=== PATIENT | male | born 1985 | race Hispanic/Latino ===

== ENCOUNTER 2018-03-05 17:49 | Emergency (ER) | payer MEDICAID ==
[2018-03-05] MEDS: KETOROLAC 60 MG/2 ML VIAL (J1885) IM (18:53)
== END 2018-03-05 20:13 | disposition home or self-care (01) ==
LOC: M ED 17:49
DX: M79.651 Pain in right thigh (principal); M79.671 Pain in right foot; M25.531 Pain in right wrist
CPT/HCPCS: J1885

== ENCOUNTER 2018-04-01 19:26 | Emergency (ER) | payer OTHER, MEDICAID ==
[2018-04-01 22:23] LABS: CHLAMYDIA DNA AMPLIFICATION NEGATIVE (NEGATIVE); GC DNA AMPLIFICATION NEGATIVE (NEGATIVE)
[2018-04-01 22:54] LABS: APPEARANCE, URINE CLEAR (CLEAR); BACTERIA, URINE AUTO NEGATIVE (NEGATIVE); BILIRUBIN, URINE AUTO NEGATIVE (NEGATIVE); BLOOD, URINE BLOOD NEGATIVE (NEGATIVE); COLOR, URINE STRAW (YELLOW); GLUCOSE, URINE (UA) AUTO NEGATIVE (NEGATIVE); KETONE, URINE AUTO NEGATIVE (NEGATIVE); LEUKOCYTE ESTERASE, URINE AUTO NEGATIVE (NEGATIVE); MUCUS, URINE SMALL (NEGATIVE); NITRITE, URINE AUTO NEGATIVE (NEGATIVE); PROTEIN, URINE AUTO NEGATIVE (NEGATIVE); RBC, URINE AUTO 1 /HPF (0-3); SPECIFIC GRAVITY URINE AUTO 1.005 (1.002-1.035); SQUAMOUS EPITHELIAL CELL UR AU 0 /HPF (0-6); UROBILINOGEN, URINE AUTO 0.2 mg/dL (0.0-2.0); WBC, URINE AUTO 0 /HPF (0-3)
[2018-04-01] MEDS: LevoFLOXacin 500 MG TABLET PO (23:45)
[2018-04-01] MEDS: OXYCODONE/APAP 5MG/325MG(BULK FOR ED) 1 TABLET PO (23:45)
== END 2018-04-01 23:53 | disposition home or self-care (01) ==
LOC: M ED 19:26
DX: N43.3 Hydrocele, unspecified (principal); N45.1 Epididymitis; M79.641 Pain in right hand
CPT/HCPCS: 76870

== ENCOUNTER 2018-06-09 09:42 | Emergency (ER) | payer OTHER ==
[~2018-06-09] VITALS: Ht 182.9 cm; Wt 90.9 kg
[~2018-06-09 09:42] MED LIST: DOXY100C37 PO; LEVA1TAB2 PO; NAPR-50 PO; PERC5TAB12 PO; ROBA500T PO
[2018-06-09 09:44] VITALS: BP 147/86
[2018-06-09] MEDS ORDERED: NEUR300C PO (10:37)
[2018-06-09] MEDS ORDERED: NAPR-50 PO (10:37)
[2018-06-09] MEDS ORDERED: PERC5TAB12 PO (10:43)
== END 2018-06-09 10:54 | disposition home or self-care (01) ==
LOC: M ED 09:42
DX: K42.9 Umbilical hernia without obstruction or gangrene (principal); M54.10 Radiculopathy, site unspecified; M79.601 Pain in right arm

== ENCOUNTER 2018-08-15 20:36 | Emergency (ER) | payer OTHER ==
[~2018-08-15] VITALS: Ht 185.4 cm; Wt 90.9 kg
[~2018-08-15 20:36] MED LIST changes: +NEUR300C PO
[2018-08-15] MEDS ORDERED: DOCU100C16 (20:48)
[2018-08-15] MEDS ORDERED: IBUP80TA (20:48)
[2018-08-15] MEDS ORDERED: HYDR-3713 (20:48)
[2018-08-15] MEDS ORDERED: METH1TAB40 (20:48)
[2018-08-15] MEDS ORDERED: MEDR4PAK PO (22:06)
[2018-08-15] MEDS ORDERED: ACETAMINOPHEN 325 MG TAB PO ONE (22:30)
[2018-08-15] MEDS ORDERED: KETOROLAC 60 MG/2 ML VIAL (J1885) IM ONE (22:30)
[2018-08-15 22:48] VITALS: BP 160/80
--- NOTE | 2018-08-16 03:55 | REP ---
Clinical: Lower back pain and sciatica the . Technique: AP, lateral, bilateral oblique, and coned-down views. Findings: Alignment and lordosis is maintained. The vertebral bodies including transverse process and spinous processes are intact and normal. There is no evidence for acute fracture / compression injury or subluxation. No evidence for spondylolysis or spondylolisthesis. No significant degenerative change is noted. Impression: Normal lumbosacral spine radiograph series. Electronically Signed by Zack Edwards MD 08/16/2018 03:46 A
== END 2018-08-15 22:52 | disposition home or self-care (01) ==
LOC: M ED 20:36
DX: M54.41 Lumbago with sciatica, right side (principal); K42.9 Umbilical hernia without obstruction or gangrene
CPT/HCPCS: 72110; 96372; 99283; J1885

== ENCOUNTER → 2018-09-03 | Outpatient (REF) | payer OTHER ==
[~2018-09-03] MED LIST changes: +DOCU100C16; +HYDR-3713; +IBUP80TA; +MEDR4PAK PO; +METH1TAB40; -NAPR-50 PO; +NAPR-837 PO
[2018-09-03 17:59] LABS: AMORPHOUS SEDIMENT LARGE (NEGATIVE); APPEARANCE, URINE TURBID (CLEAR); BACTERIA, URINE AUTO NEGATIVE (NEGATIVE); BILIRUBIN, URINE AUTO NEGATIVE (NEGATIVE); BLOOD, URINE BLOOD NEGATIVE (NEGATIVE); COLOR, URINE AMBER (YELLOW); GLUCOSE, URINE (UA) AUTO NEGATIVE (NEGATIVE); KETONE, URINE AUTO NEGATIVE (NEGATIVE); LEUKOCYTE ESTERASE, URINE AUTO NEGATIVE (NEGATIVE); MUCUS, URINE SMALL (NEGATIVE); NITRITE, URINE AUTO NEGATIVE (NEGATIVE); PROTEIN, URINE AUTO NEGATIVE (NEGATIVE); RBC, URINE AUTO 0 /HPF (0-3); SPECIFIC GRAVITY URINE AUTO 1.021 (1.002-1.035); SQUAMOUS EPITHELIAL CELL UR AU 0 /HPF (0-6); UROBILINOGEN, URINE AUTO 0.2 mg/dL (0.0-2.0); WBC, URINE AUTO 0 /HPF (0-3)
[2018-09-03 19:01] LABS: BASO # 0.1 10^3/uL (0.0-0.2); EOS # 0.2 10^3/uL (0.0-0.50); EOS % 2.7 % (0.0-3.0); HEMATOCRIT 52.3 % (42.0-52.0); HEMOGLOBIN 17.3 g/dl (13.5-17.5); LYMPH # 2.3 10^3/uL (1.5-4.5); LYMPH % 27.3 % (24.0-44.0); MEAN CORPUSCULAR HEMOGLOBIN 31.5 pg (27.0-33.0); MEAN CORPUSCULAR HGB CONC 33.1 g/dl (32.0-36.5); MEAN CORPUSCULAR VOLUME 95.1 fl (80.0-96.0); MONO # 0.7 10^3/uL (0.0-0.8); MONO % 8.4 % (0.0-5.0); NEUTROPHILS # 4.9 10^3/uL (1.8-7.7); NEUTROPHILS % 59.1 % (36.0-66.0); PLATELET COUNT, AUTOMATED 322 10^3/uL (150-450); WHITE BLOOD COUNT 8.3 10^3/uL (4.0-10.0)
[2018-09-03 19:17] LABS: HEMOGLOBIN A1c 5.8 %
[2018-09-03 19:20] LABS: ALBUMIN 4.2 GM/DL (3.2-5.2); ALT/SGPT 40 U/L (12-78); BILIRUBIN,TOTAL 0.4 MG/DL (0.2-1.0); BLOOD UREA NITROGEN 13 MG/DL (7-18); CALCIUM LEVEL 9.3 MG/DL (8.5-10.1); CARBON DIOXIDE LEVEL 28 MEQ/L (21-32); CHLORIDE LEVEL 105 MEQ/L (98-107); CHOLESTEROL LEVEL 231 MG/DL (<200); CHOLESTEROL RISK RATIO 5.923 (<5); FREE T4 0.98 NG/DL (0.76-1.46); GLOMERULAR FILTRATION RATE > 60.0 (>60); GLUCOSE, FASTING 110 MG/DL (70-100); HDL CHOLESTEROL 39 MG/DL (>40); LDL CHOLESTEROL 149 MG/DL (<100); NON-HDL-C 192 MG/DL; POTASSIUM SERUM 4.2 MEQ/L (3.5-5.1); SODIUM LEVEL 139 MEQ/L (136-145); TOTAL PROTEIN 7.8 GM/DL (6.4-8.2); TRIGLYCERIDES LEVEL 217 MG/DL (<150)
[2018-09-03 19:22] LABS: TOTAL 25(OH) VITAMIN D 25.4 NG/ML (30.0-100.0)
[2018-09-07 00:07] LABS: Lyme Disease IgG/IgM Antibodie <0.91 ISR (0.00-0.90); Lyme Disease IgM Ab Quantitati <0.80 index (0.00-0.79)
== END ==
LOC: M LAB REF 17:15
PROVIDERS: ATTEND Family Medicine
DX: Z13.228 Encounter for screening for other metabolic disorders (principal)

== ENCOUNTER → 2018-09-09 | Outpatient (CLI) | payer OTHER ==
--- NOTE | 2018-09-09 17:20 | REP ---
MRI lumbar spine without contrast: History: Low back pain. Comparison radiographs August 15, 2018. Technique: Sagittal and axial T1 and T2-weighted scans are acquired in the usual fashion with and without fat saturation. Sequences include spin echo, turbo spin-echo, and STIR imaging sequences. MRI findings: Lumbar vertebral body heights are preserved. Alignment is normal. Cortical and medullary bone signal intensity is normal. No extravertebral abnormality is observed. Normal caliber aorta. Axial and sagittal images taken at the L5-S1 level demonstrate a right posterolateral focal disc protrusion. This appears to contact the right S1 nerve root and may displace it very slightly dorsally. No neural foraminal narrowing is appreciated. No thecal sac compression is seen. There is mild disc space narrowing at L5-S1. There is no evidence of spondylolysis or spondylolisthesis. At L4-5, there is a left foraminal disc protrusion. This produces left sided neural foraminal narrowing. No thecal sac compression is seen. The right neural foramen is adequate. At L3-4, there is no evidence of disc protrusion, central canal stenosis or neural foraminal narrowing. The L2-3, and the L1-2 disc levels are unremarkable. Impression: A posterolateral focal disc protrusion at L5-S1. Left foraminal focal disc protrusion at L4-5. Otherwise negative. Electronically Signed by Fermín Colon MD 09/09/2018 06:57 P
== END ==
LOC: M RAD 15:58
PROVIDERS: ATTEND Family Medicine
DX: M54.5 Low back pain (principal)

== ENCOUNTER 2018-12-06 08:49 | Emergency (ER) | payer OTHER ==
[~2018-12-06] VITALS: Ht 182.9 cm; Wt 114.3 kg
[2018-12-06] MEDS ORDERED: BACL10TA2 PO (09:52)
[2018-12-06] MEDS ORDERED: KETO10TAB PO (09:52)
[2018-12-06] MEDS ORDERED: KETOROLAC 60 MG/2 ML VIAL (J1885) IM ONE (10:00)
[2018-12-06] MEDS ORDERED: BACLOFEN 10 MG TAB PO ONE (10:00)
[2018-12-06 10:33] VITALS: BP 133/79
== END 2018-12-06 10:34 | disposition home or self-care (01) ==
LOC: M ED 09:55
DX: M54.2 Cervicalgia (principal); M54.41 Lumbago with sciatica, right side; Z72.0 Tobacco use
CPT/HCPCS: 96372; 99283; J1885

== ENCOUNTER 2019-07-05 13:57 | Emergency (ER) | payer OTHER ==
[~2019-07-05] VITALS: Ht 182.9 cm; Wt 112.2 kg
[~2019-07-05 13:57] MED LIST changes: +BACL10TA2 PO; +KETO10TAB PO
[2019-07-05] MEDS ORDERED: KETOROLAC 30 MG/ML VIAL (J1885) IM ONE (17:45)
[2019-07-05 18:35] LABS: BASO # 0.1 10^3/uL (0.0-0.2); BASO % 0.8 % (0.0-1.0); EOS # 0.3 10^3/uL (0.0-0.5); EOS % 3.2 % (0.0-3.0); HEMATOCRIT 52.7 % (42.0-52.0); LYMPH # 3.4 10^3/uL (1.5-5.0); LYMPH % 32.3 % (24.0-44.0); MEAN CORPUSCULAR HEMOGLOBIN 31.3 pg (27.0-33.0); MEAN CORPUSCULAR HGB CONC 32.3 g/dl (32.0-36.5); MEAN CORPUSCULAR VOLUME 96.9 fl (80.0-96.0); MONO # 0.8 10^3/uL (0.0-0.8); MONO % 7.3 % (0.0-5.0); NEUTROPHILS # 5.8 10^3/uL (1.5-8.5); NEUTROPHILS % 55.7 % (36.0-66.0); PLATELET COUNT, AUTOMATED 354 10^3/uL (150-450); RED BLOOD COUNT 5.44 10^6/uL (4.30-6.10); WHITE BLOOD COUNT 10.4 10^3/uL (4.0-10.0)
[2019-07-05 18:53] LABS: CK-MB VALUE MASS 1.2 NG/ML (<3.6); CPK CREATINE PHOSPHOKINASE 234 U/L (39-308); MB/CK RELATIVE INDEX 0.51 (< OR =4); TROPONIN I < 0.02 NG/ML (< 0.10)
--- NOTE | 2019-07-05 19:19 | REP ---
CHEST, TWO VIEWS: There is no evidence of acute infiltrate. No pleural effusion is seen. The heart is normal in size. The mediastinal silhouette is unremarkable. The visualized osseous structures are intact. IMPRESSION: No acute pulmonary disease. Electronically Signed by Jason Rodriguez MD 07/06/2019 05:04 P
[2019-07-05] MEDS ORDERED: IBUP80TA PO (19:35)
[2019-07-05] MEDS ORDERED: PRED20TA PO (19:35)
[2019-07-05] MEDS ORDERED: CYCL5TAB PO (19:35)
[2019-07-05 19:40] VITALS: BP 149/93
--- NOTE | 2019-07-06 14:55 | ECGEPIP ---
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
== END 2019-07-05 19:52 | disposition home or self-care (01) ==
LOC: M ED 13:57
DX: R07.89 Other chest pain (principal); G89.29 Other chronic pain; M54.9 Dorsalgia, unspecified; F17.200 Nicotine dependence, unspecified, uncomplicated
CPT/HCPCS: 36415; 71046; 80047; 82550; 82553; 85025; 93005; 96372; 99284; J1885

== ENCOUNTER → 2019-09-23 | Outpatient (REF) | payer OTHER, MEDICAID ==
[~2019-09-23] MED LIST changes: +CYCL5TAB PO; +IBUP80TA PO; +PRED20TA PO
== END ==
LOC: M LAB REF 16:58
PROVIDERS: ATTEND Physician Assistant
DX: M54.12 Radiculopathy, cervical region (principal); M54.16 Radiculopathy, lumbar region

== ENCOUNTER 2019-10-28 15:22 | Emergency (ER) | payer MEDICAID, OTHER ==
[~2019-10-28] VITALS: Ht 185.4 cm; Wt 118.4 kg
[2019-10-28] MEDS ORDERED: BENZOCAINE 20% GEL 9GM TUBE (ANBESOL MAX STRENGTH) TOP ONE (16:30)
[2019-10-28] MEDS ORDERED: KETOROLAC 30 MG/ML 1ML VIAL IM ONE (16:30)
[2019-10-28] MEDS ORDERED: ACETAMINOPHEN 500 MG TAB PO ONE (16:30)
[2019-10-28 17:34] VITALS: BP 132/82
[2019-10-28] MEDS ORDERED: KETO10TAB PO (17:35)
[2019-10-28] MEDS ORDERED: MAGICMW SSP (17:35)
== END 2019-10-28 17:43 | disposition home or self-care (01) ==
LOC: M ED 15:22
DX: K08.89 Other specified disorders of teeth and supporting structures (principal); S02.5XXA Fracture of tooth (traumatic), initial encounter for closed fracture; X58.XXXA Exposure to other specified factors, initial encounter; Y92.9 Unspecified place or not applicable; M54.9 Dorsalgia, unspecified; G89.29 Other chronic pain; F17.210 Nicotine dependence, cigarettes, uncomplicated
CPT/HCPCS: 99283; J1885

== ENCOUNTER → 2019-11-07 | Outpatient (REF) | payer OTHER, MEDICAID ==
[~2019-11-07] MED LIST changes: +MAGICMW SSP
== END ==
LOC: M LAB REF 16:46
PROVIDERS: ATTEND Physician Assistant
DX: Z79.891 Long term (current) use of opiate analgesic (principal)

== ENCOUNTER → 2019-12-27 | Emergency (ER) | payer OTHER, MEDICAID | END | disposition home or self-care (01) | LOC: M ED 14:35 | DX: M51.24 Other intervertebral disc displacement, thoracic region (principal); M51.26 Other intervertebral disc displacement, lumbar region ==

== ENCOUNTER → 2020-06-07 | Outpatient (CLI) | payer OTHER ==
[~2020-06-07] MED LIST changes: +IBUP200C25 PO
== END ==
LOC: M LABSMTC 10:48
PROVIDERS: ATTEND Anesthesiology
DX: Z01.812 Encounter for preprocedural laboratory examination (principal); Z20.822 Contact with and (suspected) exposure to COVID-19

== ENCOUNTER 2020-06-12 08:11 | Day surgery (SDC) | payer OTHER ==
[~2020-06-12] VITALS: Ht 182.9 cm; Wt 116.0 kg
[~2020-06-12 08:11] MED LIST changes: +LIDOCAINE 1% MDV 20ML VIAL SQ PRN; +LR 1,000 ML IV ONE; +ceFAZolin SOD 2 GM in IV 1 EA IV ONE
--- OUTSIDE RECORDS SUMMARY | 2020-06-12 08:19 | CCD ---
Author Author [facility] Organization [facility] Address Unknown Phone Unavailable Care Team Providers Care Rotor Blade Installer Name Role Phone Russel Estrada Unavailable PROBLEMS Type Condition ICD9-CM Code CIC45-FN Code Onset Dates Condition S tatus SNOMED Code Notes Problem Chronic pain G89.29 Active 28041452 ALLERGIES No Known Allergies ENCOUNTERS from 1985 to 2020-05-14 Encounter Location Date Provider Diagnosis [facility] [address] [place] [phone] May, Russel Estrada Myalgia M79.10 IMMUNIZATIONS No Information SOCIAL HISTORY Tobacco Use: Social History Observation Description Date Details (start date - stop date) Current Smoker Sex Assigned At : Social History Observation Description Sex Assigned At Unknown Language: Question Answer Notes Languages spoken: Both Sammarinese and Scottish Limited Sammarinese Mandaen: Question Answer Notes Mandaen 99 Other No taoism beliefs that would impact health care. Alcohol Screening: Question Answer Notes Did you have a drink containing alcohol in the past year? No Points 0 Interpretation Negative Tobacco Use: Question Answer Notes Are you a: current smoker REASON FOR REFERRAL No Information VITAL SIGNS Weight 259.8 lbs May, Height 70 in May, BMI 37.27 kg/m2 May, Heart Rate 83 /min May, Respiratory Rate 18 /min May, Temperature 98.2 degrees Fahrenheit May, Oximetry 98% May, Blood pressure systolic 153 mm Hg May, Blood pressure diastolic 97 mm Hg May, MEDICATIONS Medication SIG (Take, Route, Frequency, Duration) Notes Start Da te End Date Status Tizanidine HCl 4 MG 1 tablet as needed Orally Three times a day Active Percocet 5-325 MG 1 tablet as needed Orally tw ice daily as needed for pain for 30 days May, Active Ibuprofen 800 MG 1 tablet with food or milk as needed Ora lly Three times a day Active Lyrica 75 MG 1 capsule Orally twice dialy for 30 days 11 D 2019 Active PROCEDURES No Information RESULTS No Results REASON FOR VISIT Back and shoulder pain-Med Management per Dr. Rose MEDICAL (GENERAL) HISTORY Type Description Date Medical History hypertension Medical History back pain, chronic Medical History umbilical hernia Medical History epididymitis Medical History chest wall pain Surgical History hand surgery, right Hospitalization History surgery related Goals Section No Information Health Concerns No Information MEDICAL EQUIPMENT No Information MENTAL STATUS No Information FUNCTIONAL STATUS No Information ASSESSMENTS Encounter Date Diagnosis Assessment Notes Treatment Notes Treatm ent Clinical Notes May, Myalgia (ICD-10 - M79.10) 34-year-old male in for chronic pain follow-up. Given presenting symptoms and consult with Dr. Douglas recommend Percocet 5/325 mg twice a day as needed for pain and Lyrica 75 mg twice a day. With follow-up in 3 weeks. Patient has expressed understanding of and was in agreement with treatment plan. Given time to ask questions and express concerns. , ISTOP registry reviewed and demonstrates complliance. 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 Given presenting symptoms and consult with Dr. Douglas recommend Percocet 5/325 mg twice a day as needed for pain and Lyrica 75 mg twice a day. With follow-up in 3 weeks. Patient has expressed understanding of and was in agreement with treatment plan. Given time to ask questions and express concerns., ISTOP registry reviewed and demonstrates complliance. (Ref # [id number] )urine collected for utox screeningObie Batista Treatment Notes Test Name Order Date Pain Center Urine Tox (send out) 2020-05-14 Next Appt Details 3 Weeks Reason:Myalgia Provider Name:Russel Estrada, 2020-06-04 11:15:00 AM, [address] [place] [address], [phone], Provider Name:Christian Misael, 2020-06-15 01:15:00 PM, [address] [place] [address], [phone], Provider Name:Russel Estrada, 2020-06-27 01:15:00 PM, [address] [place] [address], [phone], Follow Up:3 WeeksMyalgia Insurance Providers Payer Name Payer Address Payer Phone Insured Name Patient Relati onship to Insured Coverage Start Date Coverage End Date [facility] [address] [facility] [phone] BLADIMIR METZ MEDICAID [facility] [address] [facility] [id number] BLADIMIR METZ self
--- OUTSIDE RECORDS SUMMARY | 2020-06-12 08:19 | CCD ---
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 Role Phone Christian Douglas Unavailable PROBLEMS Type Condition ICD9-CM Code EQT02-TQ Code Onset Dates Condition S tatus SNOMED Code Notes Problem Chronic pain G89.29 Active [id number] ALLERGIES No Known Allergies ENCOUNTERS from 1985 to 2020-05-08 Encounter Location Date Provider Diagnosis [facility] [address] [place] [phone] May, Christian Douglas Myalgia M79.10 IMMUNIZATIONS No Information SOCIAL HISTORY Tobacco Use: Social History Observation Description Date Details (start date - stop date) Current Smoker Sex Assigned At : Social History Observation Description Sex Assigned At Unknown Language: Question Answer Notes Languages spoken: Both Ukrainian and Slovak Limited Ukrainian Denominational: Question Answer Notes Denominational 99 Other No buddhism beliefs that would impact health care. Alcohol Screening: Question Answer Notes Did you have a drink containing alcohol in the past year? No Points 0 Interpretation Negative Tobacco Use: Question Answer Notes Are you a: current smoker REASON FOR REFERRAL No Information VITAL SIGNS Weight 266 lbs May, Height 70 in May, BMI 38.16 kg/m2 May, Heart Rate 77 /min May, Respiratory Rate 18 /min May, Temperature 98.0 degrees Fahrenheit May, Oximetry 97% May, Blood pressure systolic 155 mm Hg May, Blood pressure diastolic 86 mm Hg May, MEDICATIONS Medication SIG (Take, Route, Frequency, Duration) Notes Start Da te End Date Status Tizanidine HCl 4 MG 1 tablet as needed Orally Three times a day Active Percocet 5-325 MG 1 tablet as needed Orally every 8 hrs Active Ibuprofen 800 MG 1 tablet with food or milk as needed Ora lly Three times a day Active PROCEDURES from 1985 to 2020-05-08 Procedure Date Ordered Result Body Site Medication: Valium Tab 10mg Orally (Diazepam) 2020-05-01 N/ A Medication: Oxycodone HCL Tab 10mg Orally 2020-05-01 N/A RESULTS No Results REASON FOR VISIT Trigger point injections thoracic bilateral MEDICAL (GENERAL) HISTORY Type Description Date Medical [...] Clinical Notes May, Myalgia (ICD-10 - M79.10) DISCHARGE INSTRUCTIONS REVIEWED WITH PATIENT WHO VERBALIZED UNDERSTANDING OF DISCHARGE INSTRUCTIONS. PLAN OF TREATMENT Treatment Notes Assessment Notes Clinical Notes Myalgia DISCHARGE INSTRUCTIONS REVIE WED WITH PATIENT WHO VERBALIZED UNDERSTANDING OF DISCHARGE INSTRUCTIONS. Next Appt Details Follow up with Dr. Douglas tomorrow Jaylene son:Post trigger point injections thoracic bilateral Provider Name:Russel Estrada, 2020-05-11 10:45:00 AM, [address] [place], [phone], Follow Up:Follow up with Dr. Douglas tomorrowPost trigger point injections thoracic bilateral Insurance Providers Payer Name Payer Address Payer Phone Insured Name Patient Relati onship to Insured Coverage Start Date Coverage End Date [facility] [address] [facility] [phone] BLADIMIR METZ MEDICAID [employer] [address] [facility] [id number] BLADIMIR METZ
--- OUTSIDE RECORDS SUMMARY | 2020-06-12 08:19 | CCD ---
Author Author [facility] Organization [facility] Address Unknown Phone Unavailable Care Team Providers Care Transformer Molder Name Role Phone Christian Love Unavailable PROBLEMS No Information ALLERGIES No Known Allergies ENCOUNTERS from 1985 to 2020-04-17 Encounter Location Date Provider Diagnosis [facility] [address] [place] [phone] Apr, Christian Love Lumbago M54.5 ; Cervicalgia M54.2 ; Righ t shoulder pain M25.511 and Myalgia M79.10 IMMUNIZATIONS No Information SOCIAL HISTORY Tobacco Use: Social History Observation Description Date Details (start date - stop date) Current Smoker Sex Assigned At : Social History Observation Description Sex Assigned At Unknown Language: Question Answer Notes Languages spoken: Both Guatemalan and Greek Limited Guatemalan Religious: Question Answer Notes Religious 99 Other No orthodoxy beliefs that would impact health care. Alcohol Screening: Question Answer Notes Did you have a drink containing alcohol in the past year? No Points 0 Interpretation Negative Tobacco Use: Question Answer Notes Are you a: current smoker REASON FOR REFERRAL No Information VITAL SIGNS Weight 260.8 lbs Apr, Height 70 in Apr, BMI 37.42 kg/m2 Apr, Heart Rate 96 /min Apr, Respiratory Rate 18 /min Apr, Temperature 97.1 degrees Fahrenheit Apr, Oximetry 975 Apr, Blood pressure systolic 155 mm Hg Apr, Blood pressure diastolic 89 mm Hg Apr, MEDICATIONS Medication SIG (Take, Route, Frequency, Duration) Notes Start Da te End Date Status Ibuprofen 800 MG 1 tablet with food or milk as needed Ora lly Three times a day Active Percocet 5-325 MG 1 tablet as needed Orally every 8 hrs Active Tizanidine HCl 4 MG 1 tablet as needed Orally Three times a day Active PROCEDURES No Information RESULTS No Results REASON FOR VISIT NECK/BACK/SHOULDER-PT BOOKED WITH DR LOVE DUE TO PRIMARY LANGUAGE BEING SPAN ARPAN. MEDICAL (GENERAL) HISTORY Type Description Date Medical [...] Notes Treatment Notes Treatm ent Clinical Notes Apr, Lumbago (ICD-10 - M54.5) 04/06/20 1600 patient given pre procedure instructions on trigger point injections, patient verbalizes unerstanding. Reina Woodard RN BSN I discussed alternatives with Mr. Thorpe. The main issue seems to be at the thoracolumbar area. I would like to do trigger points at bilateral thoracic area. I will follow up with the patient after the procedure. For now, the patient will continue with the medication from the primary care. The patient is interested in medical marijuana. I will send a referral to Palliative Care. The patient understands and agrees with the plan. I, Elaine Alexis, documented the above information acting as a scribe for Dr. Love. I have reviewed the above document, written by Elaine Alexis, medical terminologist, and I verify that it is accurate. Dear Dr. Ziegler: Thank you for your kind referral of Bladimir Thorpe. If you want to discuss his case with me please call me at the Pain Center at [phone]. Sincerely, Christian Love MD Pain Medicine Apr, Cervicalgia (ICD-10 - M54.2) Apr, Right shoulder pain (ICD-10 - M25.511) Apr, Myalgia (ICD-10 - M79.10) Apr, Other 04/06/20 1420 Nu rse used hospital translation services "[employer]" for assistance with new zealander translation. Reina Woodard RN BSN iPad available from [employer] [facility] please call NS before prior to obtaining iPad. PLAN OF TREATMENT Treatment Notes Assessment Notes Clinical Notes Lumbago 04/06/20 1600 patient given pre procedure instructions on trigger point injections, patient verbalizes unerstanding. 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 Thorpe. The main issue seems to be at the thoracolumbar area. I would like to do trigger points at bilateral thoracic area. I will follow up with the patient after the procedure. For now, the patient will continue with the medication from the primary care. The patient is interested in medical marijuana. I will send a referral to Palliative Care. The patient unders tands and agrees with the plan. I, Elaine Alexis, documented the above information acting as a scribe for Dr. Love. I have reviewed the above document, written by Elaine Alexis, medical terminologist, and I verify that it is accurate.Dear Dr. Ziegler:Thank you for your kind referral of Bladimir Thorpe. If you want to discuss his case with me please call me at the Pain Center at [phone].Sincerely,Christian Love, [facility] Medicine Next Appt Details Request auth for bilateral thoracic TPI Reason:Request auth for bilateral thoracic TPI Provider Name:Christian Love, 2020-05-01 02:30:00 PM, [address] [place] [address], [phone], Provider Name:Christian Love, 2020-05-02 03:15:00 PM, [address] [place] [address], [phone], Follow Up:Request auth for bilateral thoracic TPIRequest auth for bilateral thoracic TPI Insurance Providers Payer Name Payer Address Payer Phone Insured Name Patient Relati onship to Insured Coverage Start Date Coverage End Date [facility] [address] [facility] [address] BLADIMIR THORPE MEDICAID [employer] [address] [facility] [address] BLADIMIR THORPE
--- OUTSIDE RECORDS SUMMARY | 2020-06-12 08:19 | CCD ---
Author Organization Unknown Address [address] [place] [address] Phone [phone] Care Team Providers Care Senior Biostatistician/Group Leader Name Role Phone Ankit Villafana Unavailable Unavailable Allergies Code Code System Name Reaction Severity Status Onset NKDA Medications Name Status Start Date Stop Date ibuprofen 800 mg tablet Take 1 tablet 3 times a day by oral route with meals. Active Not available Percocet 5 mg-325 mg tablet Take 1 tablet every day by oral route. Active Not available tizanidine 4 mg tablet Take 1 tablet 3 times a day by oral route. Active Not available Problems Name Status Onset Date Source Nicotine Dependence Active 08/13/2018 History Endocrine/metabolic Screening Unknown 08/13/2018 Hi story Vitamin D Deficiency Active 09/17/2018 History Hyperlipidemia Active 09/17/2018 History Spinal Stenosis of Lumbar Region Active 09/17/2018 History Neck Pain Active 12/03/2018 History Pain of Right Shoulder Joint Active 12/03/2018 His tory Pain of Left Shoulder Joint Active 12/03/2018 Hist ory Cervical Radiculopathy Active 09/23/2019 History Lumbosacral Radiculopathy Active 09/23/2019 Histor y Elevated Blood-pressure Reading without Diagnosis of Hyperte nsion Active 10/07/2019 History Long-term Current Use of Opiate Analgesic Drug Active 0 11/07/2019 History Procedures Notes: Rt hand repair Results Lab Results None recorded. Past Encounters 04/19/2020 Spinal Stenosis of Lumbar Region; Neck Pain; Nicotine Dependence; Reducible Umbilical Hernia; Body Mass Index 30+ - Obesity; Obesity; Elevated Blood- pressure Reading without Diagnosis of Hypertension; Administration of Influenza Vaccine MIKKI Camara[facility]: [address], [facility] [address], [place] [address], Ph. Social History Tobacco Smoking Status Light Tobacco Smoker (1 PPW) Vaccine List None recorded. Plan of Care Patient Instructions Recommend healthy lifestyle modification . Encourage portion control, healthy food choices, and increasing routine physical activity. Recommendation is for 150 minutes throughout the week of cardiovascular exercise. Fasting labs have been ordered for you today. When labs are drawn, please ensure that you have had nothing to eat or drink for 8-10 hours prior to the blood drawn. Water or black coffee is OK to have before the blood draw. Recommend reduced salt intake, cut back on caffeine and alcohol, increase physical activity. We reviewed the assistant terminal manager risks associated with uncontrolled high blood pressure, including stroke and heart attack. Goal BP is <140/90, please call the office if your blood pressures are consistently running higher than that cutoff. Call 911 or report to the closest ER for chest pain, shortness of breath, dizziness, or passing out. Smoking cessation advised, especially in light of borderline BP. Reminders Provider Appointments None recorded. Lab None recorded. Referral None recorded. Procedures None recorded. Surgeries None recorded. Imaging None recorded. Vitals 04/19/2020 08:50AM ESTABLISHED [id number] Height Weight BMI Blood Pressure 72 in 264 lbs 35.8 kg/m2 (1) 130/94 mm[H g] (2) 156/95 mm[Hg] 01/17/2020 Height Weight Blood Pressure 72 in 260 lbs 9.6 oz 156/100 mm[Hg] 12/07/2019 Height Weight Blood Pressure 72 in 267 lbs 6.08 oz 152/92 mm[Hg] 11/07/2019 Height Weight Blood Pressure 72 in 262 lbs 139/87 mm[Hg] 10/07/2019 Height Weight Blood Pressure 72 in 266 lbs (1) 157/109 mm[Hg] (2) 164/109 mm[Hg] 09/27/2019 Height Weight Blood Pressure 72 in 264 lbs 6.4 oz 131/89 mm[Hg] 09/23/2019 Height Weight Blood Pressure 72 in 267 lbs 6.08 oz 136/88 mm[Hg] 07/04/2019 Height Weight Blood Pressure 72 in 245 lbs 138/88 mm[Hg] 05/20/2019 Height Weight Blood Pressure 72 in 255 lbs 9.6 oz 122/75 mm[Hg] 03/29/2019 Height Weight Blood Pressure 72 in 246 lbs 11.2 oz 145/90 mm[Hg] 02/25/2019 Height Weight Blood Pressure 72 in 242 lbs 145/94 mm[Hg] 12/20/2018 Height Weight Blood Pressure 72 in 250 lbs 8 oz 140/85 mm[Hg] 12/13/2018 Height Weight Blood Pressure 72 in 247 lbs 124/80 mm[Hg] 12/03/2018 Height Weight Blood Pressure 72 in 247 lbs 144/94 mm[Hg] 09/17/2018 Height Weight Blood Pressure 72 in 247 lbs 2.08 oz 134/91 mm[Hg] 08/13/2018 Height Weight Blood Pressure 72 in 237 lbs 8 oz 138/89 mm[Hg]
--- OUTSIDE RECORDS SUMMARY | 2020-06-12 08:19 | CCD | Continuity of Care Document ---
Author Author Haris RILEY MD Organization Unknown Address [address] [place] [address] Phone [phone] Care Team Providers Care Aviation Program Manager Name Role Phone VillafanaAnkit AUTM [phone] Problems Description No Information Available Social History Type Date Description Comments Sex Unknown ETOH Use Denies alcohol use Tobacco Use Start: Unknown Patient is a current smoker, smo kes every day 3 ppweek Recreational Drug Use Denies Drug Use Allergies, Adverse Reactions, Alerts Description No Known Drug Allergies Medications Active Medications SIG Qnty Indications Ordering Provide r Date Hydrocodone-Acetaminophen 5-325mg Tablets 1 tab 1-2 times a day as needed Unknown Tizanidine HCL 4mg Tablets pr n spasms Unknown Immunizations Description No Information Available Vital Signs Date Vital Result Comment 05/09/2020 9:51am BP Systolic 153 mmHg BP Diastolic 94 mmHg Height 72 inches 6'0" Weight 262.50 lb BMI (Body Mass Index) 35.6 kg/m2 [place] Body Weight 178 lb Weight 119.070 kg BSA (Body Surface Area) 2.39 m2 Results Description No Information Available Procedures Description No Information Available Medical Devices Description No Information Available Encounters Description No Information Available Assessments Description No Information Available Plan of Treatment No Information Available Functional Status Description No Information Available Mental Status Description No Information Available Referrals Refer to Reason for Referral Status Appt Date Carl Riley JR, MD ENLARGING HERNIA X 2 YEARS, INTERMITT ENT DISCOMFORT Scheduled 05/09/[address] [place] [phone]
--- OUTSIDE RECORDS SUMMARY | 2020-06-12 08:19 | CCD ---
Author Author [facility] Organization [facility] Address Unknown Phone Unavailable Care Team Providers Care Warehouse Supervisor 3Rd Shift Name Role Phone Russel Estrada Unavailable PROBLEMS Type Condition ICD9-CM Code [id number] Code Onset Dates Condition S tatus SNOMED Code Notes Problem Chronic pain G89.29 Active [id number] ALLERGIES No Known Allergies ENCOUNTERS from 1986 to 2020-06-05 Encounter Location Date Provider Diagnosis [facility] [address] [place] [phone] Jun, Russel Estrada Myalgia M79.10 IMMUNIZATIONS No Information SOCIAL HISTORY Tobacco Use: Social History Observation Description Date Details (start date - stop date) Current Smoker Sex Assigned At : Social History Observation Description Sex Assigned At Unknown Language: Question Answer Notes Languages spoken: Both Libyan and Greenlandic Limited Libyan Sabianist: Question Answer Notes Sabianist 99 Other No hinduism beliefs that would impact health care. Alcohol Screening: Question Answer Notes Did you have a drink containing alcohol in the past year? No Points 0 Interpretation Negative Tobacco Use: Question Answer Notes Are you a: current smoker Are you interested in quitting? Thinking about quitting Counseled the patient on smoking cessation, education provid ed 06/04/2020 REASON FOR REFERRAL No Information VITAL SIGNS Weight 258.6 lbs Jun, Height 70 in Jun, BMI 37.10 kg/m2 Jun, Heart Rate 102 /min Jun, Respiratory Rate 18 /min Jun, Temperature 95.6 degrees Fahrenheit Jun, Oximetry 98% Jun, Blood pressure systolic 156 mm Hg Jun, Blood pressure diastolic 93 mm Hg Jun, MEDICATIONS Medication SIG (Take, Route, Frequency, Duration) Notes Start Da te End Date Status Ibuprofen 800 MG 1 tablet with food or milk as needed Ora lly Three times a day Not-Taking Tizanidine HCl 4 MG 1 tablet as needed Orally Three times a day Not-Taking Percocet 5-325 MG 1 tablet as needed Orally tw ice daily as needed for pain for 30 days Jun, Active Lyrica 75 MG 1 capsule Orally twice dialy for 30 days 11 2019 Active PROCEDURES No Information RESULTS No Results REASON FOR VISIT 3 week - Med Management MEDICAL (GENERAL) HISTORY Type Description Date Medical [...] Notes Treatment Notes Treatm ent Clinical Notes Jun, Myalgia (ICD-10 - M79.10) 34-year-old male in for chronic pain follow-up. Given presenting symptoms recommend continuation of current medication regimen with follow-up in 2 months. Discussed medical marijuana with patient and he admits that at this time is not a feasible option as patient is unemployed and it is expensive. , ISTOP registry reviewed and demonstrates complliance. 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 Given presenting symptoms recommend continuation of current medication regimen with follow-up in 2 months. Discussed medical marijuana with patient and he admits that at this time is not a feasible option as patient is unemployed and it is expensive., ISTOP registry reviewed and demonstrates complliance. (Ref # [id number] ) Next Appt Details 2 Months Reason:myalgia Provider Name:Christian Douglas, 2020-06-15 01:15:00 PM, [address] [place], [phone], Provider Name:Russel Estrada, 2020-06-27 01:15:00 PM, [address] [place] [address], [phone], Provider Name:Russel Douglas Sean, 2020-08-02 11:30:00 AM, [address] [place] [address], [phone], Follow Up:2 Monthsmyalgia Insurance Providers Payer Name Payer Address Payer Phone Insured Name Patient Relati onship to Insured Coverage Start Date Coverage End Date [facility] [address] [facility] [phone] BLADIMIR METZ MEDICAID [facility] [address] [facility] [id number] BLADIMIR METZ self
--- OUTSIDE RECORDS SUMMARY | 2020-06-12 08:19 | CCD ---
Author Author [facility] Organization [facility] Address Unknown Phone Unavailable Care Team Providers Care Finish Painter Name Role Phone Christian Douglas Unavailable PROBLEMS No Information ALLERGIES No Known Allergies ENCOUNTERS from 1986 to 2020-04-06 Encounter Location Date Provider Diagnosis [facility] [address] [place] [phone] Apr, Christian Douglas IMMUNIZATIONS No Information SOCIAL HISTORY Tobacco Use: Social History Observation Description Date Details (start date - stop date) Current Smoker Sex Assigned At : Social History Observation Description Sex Assigned At Unknown Language: Question Answer Notes Languages spoken: Both Kyrgyz and Macanese Limited Kyrgyz Hinduism: Question Answer Notes Hinduism 99 Other No scientology beliefs that would impact health care. Alcohol Screening: Question Answer Notes Did you have a drink containing alcohol in the past year? No Points 0 Interpretation Negative Tobacco Use: Question Answer Notes Are you a: current smoker REASON FOR REFERRAL No Information VITAL SIGNS No information MEDICATIONS Medication SIG (Take, Route, Frequency, Duration) Start Date En d Date Status Ibuprofen 800 MG 1 tablet with food or milk as needed Ora lly Three times a day Active Percocet 5-325 MG 1 tablet as needed Orally every 8 hrs Active Tizanidine HCl 4 MG 1 tablet as needed Orally Three times a day Active PROCEDURES No Information RESULTS No Results REASON FOR VISIT PAT: NPC ([place] ONLY) MEDICAL (GENERAL) HISTORY Type Description Date Medical History hypertension Medical History back pain, chronic Medical History umbilical hernia Medical History epididymitis Medical History chest wall pain Surgical History hand surgery, right Hospitalization History surgery related Goals Section No Information Health Concerns No Information MEDICAL EQUIPMENT No Information MENTAL STATUS No Information FUNCTIONAL STATUS No Information ASSESSMENTS No Information PLAN OF TREATMENT No Information Insurance Providers Payer Name Payer Address Payer Phone Insured Name Patient Relati onship to Insured Coverage Start Date Coverage End Date [facility] [address] [facility] [phone] BLADIMIR METZ MEDICAID [employer] [address] [facility] [address] BLADIMIR METZ self
--- OUTSIDE RECORDS SUMMARY | 2020-06-12 08:19 | CCD ---
Author Author [facility] Organization [facility] Address Unknown Phone Unavailable Care Team Providers Care Innovation Manager Name Role Phone Christian Douglas Unavailable PROBLEMS Type Condition ICD9-CM Code [id number] Code Onset Dates Condition S tatus SNOMED Code Notes Problem Chronic pain G89.29 Active [id number] ALLERGIES No Known Allergies ENCOUNTERS from 1986 to 2020-05-10 Encounter Location Date Provider Diagnosis [facility] [address] [place] [phone] May, Christian Douglas Chronic pain G89.29 ; Shoulder pain M25. 519 ; Low back pain M54.5 and Myalgia, other site M79.18 IMMUNIZATIONS No Information SOCIAL HISTORY Tobacco Use: Social History Observation Description Date Details (start date - stop date) Current Smoker Sex Assigned At : Social History Observation Description Sex Assigned At Unknown Language: Question Answer Notes Languages spoken: Both South African and Niuean Limited South African Alevism: Question Answer Notes Alevism 99 Other No evangelical beliefs that would impact health care. Alcohol [...] May, Respiratory Rate 18 /min May, Temperature 95.4 degrees Fahrenheit May, Oximetry 96% May, Blood pressure systolic 144 mm Hg May, Blood pressure diastolic 87 mm Hg May, MEDICATIONS Medication SIG (Take, [...] a day Active PROCEDURES from 1986 to 2020-05-10 Procedure Date Ordered Result Body Site Pain Procedure Log 2020-05-02 N/A RESULTS No Results REASON FOR VISIT Post TPI thoracic MEDICAL (GENERAL) HISTORY Type Description Date Medical [...] Treatment Notes Treatm ent Clinical Notes May, Chronic pain (ICD-10 - G89.29) PREPROCEDURE INSTRUCTIONS FOR TRIGGER POINT INJECTIONS REVIEWED WITH PATIENT. PATIENT VERBALIZES UNDERSTANDING OF PREPROCEDURE INSTRUCTIONS WITH SPEAKING SLOWLY AND CLEARLY DUE TO BILINGUAL STATUS OF PATIENT. May, Shoulder pain (ICD-10 - M25.519) I discussed alternatives with Mr. Thorpe. I am going to request authorization for bilateral lower back and bilateral shoulder trigger point injections, book after approve. The patient had a trigger point injection over his thoracic area yesterday. It is still too early to know how that injection is doing. I discussed with his primary care physician about his medication management. The primary agrees with us taking over as long as it is no more than 2 tablets a day with no more than 50 mg of morphine. We will do this for 8 months and then his primary will take back over the medication management. I am still referring the patient for medical marijuana. The patient will follow up with the nurse practitioner for medication management. The patient reports understanding and agrees with the plan. I, Elaine Alexis, documented the above information acting as a scribe for Dr. Douglas. I have reviewed the above document, written by Elaine Alexis, medical management specialist, and I verify that it is accurate. May, Low back pain (ICD-10 - M54.5) May, Myalgia, other site (ICD-10 - M79.18) PLAN OF TREATMENT Treatment Notes Assessment Notes Clinical Notes Chronic pain PREPROCEDURE INSTRUCTIONS FO R TRIGGER POINT INJECTIONS REVIEWED WITH PATIENT. PATIENT VERBALIZES UNDERSTANDING OF PREPROCEDURE INSTRUCTIONS WITH SPEAKING SLOWLY AND CLEARLY DUE TO BILINGUAL STATUS OF PATIENT. Shoulder pain I discussed marvindevon agnieszka with Mr. Thorpe. I am going to request authorization for bilateral lower back and bilateral shoulder trigger point injections, book after approve. The patient had a trigger point injection over his thoracic area yesterday. It is still too early to know how that injection is doing. I discussed with his primary care physician about his medication management. The primary agrees with us taking over as long as it is no more than 2 tablets a day with no more than 50 mg of morphine. We will do this for 8 months and then his primary will take back over the medication management. I am still referring the patient for medical marijuana. The patient will follow up with the nurse practitioner for medication management. The patient reports understanding and agrees with the plan. I, Elaine Alexis, documented the above information acting as a scribe for Dr. Douglas. I have reviewed the above document, written by Elaine Alexis, medical management specialist, and I verify that it is accurate. Next Appt Details Request auth for trigger point injection bilateral lower back and bilateral shoulders. Next week follow up with IMAGING NURSE for med management Reason:book trigger point for next week if possible Provider Name:Russel Estrada, 2020-05-11 10:45:00 AM, [address] [place] [address], [phone], Follow Up:Request auth for trigger point injection bilateral lower back and bilateral shoulders. Next week follow up with IMAGING NURSE for med managementbook trigger point for next week if possible Insurance Providers Payer Name Payer Address Payer Phone Insured Name Patient Relati onship to Insured Coverage Start Date Coverage End Date [facility] [employer] [address] [facility] [id number] [phone] BLADIMIR THORPE MEDICAID [employer] [address] [facility] [id number] BLADIMIR THORPE
--- OUTSIDE RECORDS SUMMARY | 2020-06-12 08:20 | CCD ---
Author Author [facility] Organization [facility] Address Unknown Phone Unavailable Care Team Providers Care Oracle Architect Name Role Phone ADEN, KARLEY ANKIT RPA-C Unavailable Unavailable ADEN, KARLEY ANKIT RPA-C Unavailable Unavailable ADEN, KARLEY ANKIT RPA-C Unavailable Unavailable ADEN, KARLEY ANKIT RPA-C Unavailable Unavailable ADEN, KARLEY ANKIT RPA-C Unavailable Unavailable ADEN, KARLEY ANKIT RPA-C Unavailable Unavailable ADEN, KARLEY ANKIT RPA-C Unavailable Unavailable ADEN, KARLEY ANKIT RPA-C Unavailable Unavailable ADEN, KARLEY ANKIT RPA-C Unavailable Unavailable ADEN, KARLEY ANKIT RPA-C Unavailable Unavailable ADEN, KARLEY ANKIT RPA-C Unavailable Unavailable ADEN, KARLEY ANKIT RPA-C Unavailable Unavailable ADEN, KARLEY ANKIT RPA-C Unavailable Unavailable ADEN, KARLEY ANKIT RPA-C Unavailable Unavailable ADEN, KARLEY ANKIT RPA-C Unavailable Unavailable ADEN, KARLEY ANKIT RPA-C Unavailable Unavailable ADEN, KARLEY ANKIT RPA-C Unavailable Unavailable ADEN, KARLEY ANKIT RPA-C Unavailable Unavailable ADEN, KARLEY ANKIT RPA-C Unavailable Unavailable ADEN, KARLEY ANKIT RPA-C Unavailable Unavailable ADEN, KARLEY ANKIT RPA-C Unavailable Unavailable ADEN, KARLEY ANKIT RPA-C Unavailable Unavailable ADEN, KARLEY ANKIT RPA-C Unavailable Unavailable ADEN, KARLEY ANKIT RPA-C Unavailable Unavailable ADEN, KARLEY ANKIT RPA-C Unavailable Unavailable ADEN, KARLEY ANKIT RPA-C Unavailable Unavailable ADEN, KARLEY ANKIT RPA-C Unavailable Unavailable ADEN, KARLEY ANKIT RPA-C Unavailable Unavailable ADEN, KARLEY ANKIT RPA-C Unavailable Unavailable ADEN, KARLEY ANKIT RPA-C Unavailable Unavailable ADEN, KARLEY ANKIT RPA-C Unavailable Unavailable ADEN, KARLEY ANKIT RPA-C Unavailable Unavailable ADEN, KARLEY ANKIT RPA-C Unavailable Unavailable ADEN, KARLEY ANKIT RPA-C Unavailable Unavailable ADEN, KARLEY ANKIT RPA-C Unavailable Unavailable ADEN, KARLEY ANKIT RPA-C Unavailable Unavailable ADEN, KARLEY ANKIT RPA-C Unavailable Unavailable ADEN, KARLEY ANKIT RPA-C Unavailable Unavailable Kayla LANDAVERDE MD Unavailable Unavailable Kayla LANDAVERDE MD Unavailable Unavailable Kayla LANDAVERDE MD Unavailable Unavailable Kayla LANDAVERDE MD Unavailable Unavailable Kayla LANDAVERDE MD Unavailable Unavailable Kayla LANDAVERDE MD Unavailable Unavailable Kayla LANDAVERDE MD Unavailable Unavailable Kayla LANDAVERDE MD Unavailable Unavailable Kayla LANDAVERDE MD Unavailable Unavailable Kayla LANDAVERDE MD Unavailable Unavailable Kayla LANDAVERDE MD Unavailable Unavailable Kayla LANDAVERDE MD Unavailable Unavailable Kayla LANDAVERDE MD Unavailable Unavailable Kayla LANDAVERDE MD Unavailable Unavailable Kayla LANDAVERDE MD Unavailable Unavailable Kayla LANDAVERDE MD Unavailable Unavailable Kayla LANDAVERDE MD Unavailable Unavailable Kayla LANDAVERDE MD Unavailable Unavailable Kayla LANDAVERDE MD Unavailable Unavailable Kayla LANDAVERDE MD Unavailable Unavailable Kayla LANDAVERDE MD Unavailable Unavailable Kayla LANDAVERDE MD Unavailable Unavailable Kayla LANDAVERDE MD Unavailable Unavailable Kayla LANDAVERDE MD Unavailable Unavailable Kayla LANDAVERDE MD Unavailable Unavailable Kayla LANDAVERDE MD Unavailable Unavailable Kayla LANDAVERDE MD Unavailable Unavailable Kayla LANDAVERDE MD Unavailable Unavailable Kayla LANDAVERDE MD Unavailable Unavailable Kayla LANDAVERDE MD Unavailable Unavailable Kayla LANDAVERDE MD Unavailable Unavailable Kayla LANDAVERDE MD Unavailable Unavailable Kayla LANDAVERDE MD Unavailable Unavailable Kayla LANDAVERDE MD Unavailable Unavailable Kayla LANDAVERDE MD Unavailable Unavailable Kayla LANDAVERDE MD Unavailable Unavailable Kayla LANDAVERDE MD Unavailable Unavailable Kayla LANDAVERDE MD Unavailable Unavailable Kayla LANDAVERDE MD Unavailable Unavailable Kayla LANDAVERDE MD Unavailable Unavailable Kayla LANDAVERDE MD Unavailable Unavailable Kayla LANDAVERDE MD Unavailable Unavailable Kayla LANDAVERDE MD Unavailable Unavailable Kayla LANDAVERDE MD Unavailable Unavailable Kayla LANDAVERDE MD Unavailable Unavailable Kayla LANDAVERDE MD Unavailable Unavailable Kayla LANDAVERDE MD Unavailable Unavailable Kayla LANDAVERDE MD Unavailable Unavailable Kayla LANDAVERDE MD Unavailable Unavailable Kayla LANDAVERDE MD Unavailable Unavailable Kayla LANDAVERDE MD Unavailable Unavailable Kayla LANDAVERDE MD Unavailable Unavailable Kayla LANDAVERDE MD Unavailable Unavailable Kayla LANDAVERDE MD Unavailable Unavailable Kayla LANDAVERDE MD Unavailable Unavailable Kayla LANDAVERDE MD Unavailable Unavailable Kayla LANDAVERDE MD Unavailable Unavailable Kayla LANDAVERDE MD Unavailable Unavailable Kayla LANDAVERDE MD Unavailable Unavailable Kayla LANDAVERDE MD Unavailable Unavailable Kayla LANDAVERDE MD Unavailable Unavailable Kayla LANDAVERDE MD Unavailable Unavailable Kayla LANDAVERDE MD Unavailable Unavailable Kayla LANDAVERDE MD Unavailable Unavailable Kayla LANDAVERDE MD Unavailable Unavailable Kayla LANDAVERDE MD Unavailable Unavailable Kayla LANDAVERDE MD Unavailable Unavailable Kayla LANDAVERDE MD Unavailable Unavailable Kayla LANDAVERDE MD Unavailable Unavailable Kayla LANDAVERDE MD Unavailable Unavailable Kayla LANDAVERDE MD Unavailable Unavailable Kayla LANDAVERDE MD Unavailable Unavailable Kayla LANDAVERDE MD Unavailable Unavailable Kayla LANDAVERDE MD Unavailable Unavailable Kayla LANDAVERDE MD Unavailable Unavailable Kayla LANDAVERDE MD Unavailable Unavailable Kayla LANDAVERDE MD Unavailable Unavailable Kayla LANDAVERDE MD Unavailable Unavailable Kayla LANDAVERDE MD Unavailable Unavailable Kayla LANDAVERDE MD Unavailable Unavailable Kayla LANDAVERDE MD Unavailable Unavailable Kayla LANDAVERDE MD Unavailable Unavailable Kayla LANDAVERDE MD Unavailable Unavailable KARLEY ADEN RPA-C Unavailable Unavailable ADEN, KARLEY ANKIT RPA-C Unavailable Unavailable ADEN, KARLEY ANKIT RPA-C Unavailable Unavailable ADEN, KARLEY ANKIT RPA-C Unavailable Unavailable ADEN, KARLEY ANKIT RPA-C Unavailable Unavailable ADEN, KARLEY ANKIT RPA-C Unavailable Unavailable ADEN, KARLEY ANKIT RPA-C Unavailable Unavailable ADEN, KARLEY ANKIT RPA-C Unavailable Unavailable ADEN, KARLEY ANKIT RPA-C Unavailable Unavailable ADEN, KARLEY ANKIT RPA-C Unavailable Unavailable ADEN, KARLEY ANKIT RPA-C Unavailable Unavailable ADEN, KARLEY ANKIT RPA-C Unavailable Unavailable ADEN, KARLEY ANKIT RPA-C Unavailable Unavailable ADEN, KARLEY ANKIT RPA-C Unavailable Unavailable ADEN, KARLEY ANKIT RPA-C Unavailable Unavailable ADEN, KARLEY ANKIT RPA-C Unavailable Unavailable ADEN, KARLEY ANKIT RPA-C Unavailable Unavailable ADEN, KARLEY ANKIT RPA-C Unavailable Unavailable ADEN, KARLEY ANKIT RPA-C Unavailable Unavailable ADEN, KARLEY ANKIT RPA-C Unavailable Unavailable ADEN, KARLEY ANKIT RPA-C Unavailable Unavailable ADEN, KARLEY ANKIT RPA-C Unavailable Unavailable ADEN, KARLEY ANKIT RPA-C Unavailable Unavailable ADEN, KARLEY ANKIT RPA-C Unavailable Unavailable ADEN, KARLEY ANKIT RPA-C Unavailable Unavailable ADEN, KARLEY ANKIT RPA-C Unavailable Unavailable ADEN, KARLEY ANKIT RPA-C Unavailable Unavailable ADEN, KARLEY ANKIT RPA-C Unavailable Unavailable ADEN, KARLEY ANKIT RPA-C Unavailable Unavailable ADEN, KARLEY ANKIT RPA-C Unavailable Unavailable ADEN, KARLEY ANKIT RPA-C Unavailable Unavailable ADEN, KARLEY ANKIT RPA-C Unavailable Unavailable ADEN, KARLEY ANKIT RPA-C Unavailable Unavailable ADEN, KARLEY ANKIT RPA-C Unavailable Unavailable ADEN, KARLEY ANKTI RPA-C Unavailable Unavailable ADEN, KARLEY AKNIT RPA-C Unavailable Unavailable ADEN, KARLEY ANKIT RPA-C Unavailable Unavailable ADEN, KARLEY ANKIT RPA-C Unavailable Unavailable Iram Nguyen MD Unavailable Unavailable Iram Ngyuen MD Unavailable Unavailable BolIram nelson MD Unavailable Unavailable BolIram nelson MD Unavailable Unavailable BolIram nelson MD Unavailable Unavailable BolIram nelson MD Unavailable Unavailable Bolla, Iram Chaudhry MD Unavailable Unavailable Bolla, Iram Chaudhry MD Unavailable Unavailable Bolla, Iram Chaudhry MD Unavailable Unavailable Bolla, Iram Chaudhry MD Unavailable Unavailable Bolla, Iram Chaudhry MD Unavailable Unavailable Bolla, Iram Chaudhry MD Unavailable Unavailable Bolla, Iram Chaudhry MD Unavailable Unavailable Bolla, Iram Chaudhry MD Unavailable Unavailable Bolla, Iram Chaudhry MD Unavailable Unavailable Bolla, Iram Chaudhry MD Unavailable Unavailable Bolla, Iram Chaudhry MD Unavailable Unavailable Bolla, Iram Chaudhry MD Unavailable Unavailable Bolla, Iram Chaudhry MD Unavailable Unavailable Bolla, Iram Chaudhry MD Unavailable Unavailable Bolla, Iram Chaudhry MD Unavailable Unavailable Bolla, Iram Chaudhry MD Unavailable Unavailable Bolla, Iram Chaudhry MD Unavailable Unavailable Bolla, Iram Chaudhry MD Unavailable Unavailable Bolla, Iram Chaudhry MD Unavailable Unavailable Bolla, Iram Chaudhry MD Unavailable Unavailable Bolla, Iram Chaudhry MD Unavailable Unavailable Bolla, Iram Chaudhry MD Unavailable Unavailable Bolla, Iram Chaudhry MD Unavailable Unavailable Bolla, Iram Chaudhry MD Unavailable Unavailable Bolla, Iram Chaudhry MD Unavailable Unavailable Bolla, Iram Chaudhry MD Unavailable Unavailable Bolla, Iram Chaudhry MD Unavailable Unavailable Bolla, Iram Chaudhry MD Unavailable Unavailable Bolla, Iram Chaudhry MD Unavailable Unavailable Bolla, Iram Chaudhry MD Unavailable Unavailable Bolla, Iram Chaudhry MD Unavailable Unavailable Bolla, Iram Chaudhry MD Unavailable Unavailable Bolla, Iram Chaudhry MD Unavailable Unavailable Bolomar, Iram Chaudhry MD Unavailable Unavailable Bolla, Iram Chaudhry MD Unavailable Unavailable Bolla, Iram Chaudhry MD Unavailable Unavailable Bolla, Iram Chaudhry MD Unavailable Unavailable Bolla, Iram Chaudhry MD Unavailable Unavailable Bolomar, Iram Chaudhry MD Unavailable Unavailable Bolla, Iram Chaudhry MD Unavailable Unavailable Bolomar, Iram Chaudhry MD Unavailable Unavailable Bolomar, Iram Chaudhry MD Unavailable Unavailable Albino Ziegler MD Unavailable Unavailable Albino Ziegler MD Unavailable Unavailable Albino Ziegler MD Unavailable Unavailable Albino Ziegler MD Unavailable Unavailable Albino Ziegler MD Unavailable Unavailable Albino Ziegler MD Unavailable Unavailable Albino Ziegler MD Unavailable Unavailable Albino Ziegler MD Unavailable Unavailable ZieglerAlbino corea MD Unavailable Unavailable Ziegler, L Torrey MD Unavailable Unavailable Ziegler, L Torrey MD Unavailable Unavailable Ziegler, L Torrey MD Unavailable Unavailable Ziegler, L Torrey MD Unavailable Unavailable Ziegler, L Torrey MD Unavailable Unavailable Ziegler, L Torrey MD Unavailable Unavailable Ziegler, L Torrey MD Unavailable Unavailable Ziegler, L Torrey MD Unavailable Unavailable Ziegler, L Torrey MD Unavailable Unavailable Ziegler, L Torrey MD Unavailable Unavailable Ziegler, L Torrey MD Unavailable Unavailable Ziegler, L Torrey MD Unavailable Unavailable Ziegler, L Torrey MD Unavailable Unavailable Ziegler, L Torrey MD Unavailable Unavailable Ziegler, L Torrey MD Unavailable Unavailable Ziegler, L Torrey MD Unavailable Unavailable Ziegler, L Torrey MD Unavailable Unavailable Ziegler, L Torrey MD Unavailable Unavailable Ziegler, L Torrey MD Unavailable Unavailable Ziegler, L Torrey MD Unavailable Unavailable Ziegler, L Torrey MD Unavailable Unavailable Ziegler, L Torrey MD Unavailable Unavailable Ziegler, L Torrey MD Unavailable Unavailable Ziegler, L Torrey MD Unavailable Unavailable Ziegler, L Torrey MD Unavailable Unavailable Ziegler, L Torrey MD Unavailable Unavailable Ziegler, L Torrey MD Unavailable Unavailable Ziegler, L Torrey MD Unavailable Unavailable Ziegler, L Torrey MD Unavailable Unavailable Ziegler, L Torrey MD Unavailable Unavailable Ziegler, L Torrey MD Unavailable Unavailable Ziegler, L Torrey MD Unavailable Unavailable Ziegler, L Torrey MD Unavailable Unavailable Ziegler, L Torrey MD Unavailable Unavailable Ziegler, L Torrey MD Unavailable Unavailable Ziegler, L Torrey MD Unavailable Unavailable Ziegler, L Torrey MD Unavailable Unavailable Ziegler, L Torrey MD Unavailable Unavailable [facility], RFROST ADEN HARRY HEREDIA Unavailable Unavailable Re-disclosure Warning The records that you are about to access may contain information from federally-assisted alcohol or drug abuse programs. If such information is present, then the following federally mandated warning applies: This information has been disclosed to you from records protected by federal confidentiality rules (42 CFR part 2). The federal rules prohibit you from making any further disclosure of this information unless further disclosure is expressly permitted by the written consent of the person to whom it pertains or as otherwise permitted by 42 CFR part 2. A general authorization for the release of medical or other information is NOT sufficient for this purpose. The Federal rules restrict any use of the information to criminally investigate or prosecute any alcohol or drug abuse patient.The records that you are about to access may contain highly sensitive health information, the redisclosure of which is protected by Article 27-F of the [place] State Public Health law. If you continue you may have access to information: Regarding HIV / AIDS; Provided by facilities licensed or operated by the [facility] Office of Mental Health; or Provided by the [facility] Office for People With Developmental Disabilities. If such information is present, then the following [facility] mandated warning applies: This information has been disclosed to you from confidential records which are protected by state law. State law prohibits you from making any further disclosure of this information without the specific written consent of the person to whom it pertains, or as otherwise permitted by law. Any unauthorized further disclosure in violation of state law may result in a fine or care home sentence or both. A general authorization for the release of medical or other information is NOT sufficient authorization for further disc losure. Family History Family Member Name Family Member Gender Family Member Status Date o f Status Description Data Source(s) Unknown Male Problem [facility] ([facility] ) Encounters Encounter Providers Location Date Indications Data Source(s ) Outpatient [address] [place] [id number] 06/04/2020 12:00:00 AM EST eCW1 ([facility]) Outpatient [address] [facility] [id number] 05/11/2020 12:00:00 AM EST eCW1 ([facility]) Outpatient [address] [facility] [id number] 05/02/2020 12:00:00 AM EST eCW1 ([facility]) (PN Proc 45) Pain Procedure 45 [address] [place] [address] 05/01/2020 12:00:00 AM EST eCW1 ([facility]) CECILE Camara: [address] [facility] [facility] [address], [place] [address], Ph. Attender: ANKIT HUBER [facility] Medical 04/19/2020 12:00:00 AM EST HARPREET ([facility]) Outpatient [address] [facility] [id number] 04/06/2020 12:00:00 AM EST eCW1 ([facility]) Unknown [address] [facility] [address] 04/05/2020 12:00:00 AM EST eCW1 ([facility]) Outpatient Attender: RFROST ADEN PA ANKIT [facility] 03/02 08:25:01 AM EDT [facility] Outpatient Attender: RFROST ADEN PA ANKIT [facility] 01/31 03:29:02 PM EDT [facility] Office Visit Attender: Torrey Ziegler MD Physical Therapy 2019 01:00:00 PM EDT MEDENRIQUE ([facility]) Outpatient Attender: RFROST ADEN PA ANKIT [facility] 01/31 03:36:02 PM EDT [facility] Outpatient Attender: RFROST ADEN PA ANKIT [facility] 07/2019 10:14:02 AM EDT [facility] Outpatient Attender: RFROST ADEN PA ANKIT [facility] 09/2019 03:21:00 PM EDT [facility] Outpatient Attender: RFROST ADEN PA ANKIT [facility] 11/29 02:11:01 PM EDT [facility] Outpatient Attender: RFROST ADEN PA ANKIT [facility] 10/30 09:43:01 AM EDT [facility] Outpatient Attender: ANKIT ADEN RPA-C [facility] 11/07/2019 01:48:03 PM EDT [facility] Outpatient Attender: RFROST ADEN PA ANKIT [facility] 06/2019 11:51:01 AM EDT [facility] Outpatient Attender: RFROST ADEN PA ANKIT [facility] 09/30 02:46:02 PM EDT [facility] Outpatient Attender: RFROST ADEN PA ANKIT [facility] 09/30 11:05:01 AM EDT [facility] Outpatient Attender: RFROST ADEN PA ANKIT [facility] 09/30 01:42:01 PM EDT [facility] Outpatient Attender: RFROST ADEN PA ANKIT [facility] 09/30 09:50:22 AM EDT [facility] Outpatient Attender: ANKIT KAYEC [facility] 10/07/2019 02:00:07 PM EDT [facility] Outpatient Attender: CAT ADEN HARRY GILBERT [facility] 09/2019 01:20:01 PM EDT [facility] Outpatient Attender: CAT KEIKO GILBERT [facility] 08/2019 07:51:02 AM EDT [facility] Outpatient Attender: ANKIT ADEN RPA-C [facility] 09/27/2019 11:50:01 AM EDT [facility] Outpatient Attender: ANKIT ADEN RPA-C [facility] 09/23/2019 03:52:02 PM EDT [facility] Outpatient Attender: ANKIT KAYEC 08/10/2019 11:40:01 AM EDT [facility] Outpatient Attender: ANKIT KAYEC 08/10/2019 11:38:00 AM EDT [facility] Isidoro Nguyen MD: [address] [phone], Ph. Attender: Isidoro Nguyen MD [place] - [facility] - Main Office 07/12/2019 12:00:00 AM [facility] ([facility]) Outpatient Attender: CAT GILBERT 07/08/2019 08:22:01 AM [facility] Outpatient Attender: CAT GILBERT 2019 11:17:01 AM [facility] Outpatient Attender: ANKIT HUBER 07/04/2019 03:22:01 PM [facility] Outpatient Attender: KLARISSA LANDAVERDE MD FP 07/04/2019 03:21:00 P M [facility] Outpatient Attender: KLARISSA LANDAVERDE MD FP 07/04/2019 03:12:01 P M [facility] Outpatient Attender: KLARISSA LANDAVERDE MD FP 07/04/2019 03:11:01 P M [facility] Outpatient Attender: KLARISSA LANDAVERDE MD FP 07/04/2019 02:58:01 P M [facility] Outpatient Attender: KLARISSA LANDAVERDE MD 05/21/2019 07:39:00 A [facility] Outpatient Attender: KLARISSA LANDAVERDE MD 05/18/2019 11:13:01 A [facility] Outpatient Attender: KLARISSA LANDAVERDE MD 05/18/2019 11:12:01 A [facility] Medications Medication Brand Name Start Date Product Form Dose Route Admi nistrative Instructions Pharmacy Instructions Status Indications Reaction Description Data Source(s) 5-325 mg 06/09/2020 12:00:00 AM EST tablet 60 TAKE ONE TABLET BY MOUTH TWICE A DAY NEEDED FOR PAIN, MAXIMUM DAILY DOSE = TWO TABLETS TAKE ONE TABLET BY MOUTH TWICE A DAY NEEDED FOR PAIN, MAXIMUM DAILY DOSE = TWO TABLETS SOLD: 06/09/2020 [facility] 75 mg 06/09/2020 12:00:00 AM EST capsule 60 TAKE ONE CAPSULE BY MOUTH TWICE A DAY, MAXIMUM DAILY DOSE = 2 TAKE ONE CAPSULE BY MOUTH TWICE A DAY, [facility] DAILY DOSE = 2 SOLD: 06/09/2020 [facility] Acetaminophen 325 MG / Oxycodone Hydroch loride 5 MG Oral Tablet [Percocet] Percocet 5-325 MG Percocet 5-325 MG 06/04/2020 12:00:00 AM EST 1 .0 {tablet_as_needed} active Percocet 5-32 5 MG eCW1 ([facility]) 5-325 mg 05/11/2020 12:00:00 AM EST tablet 60 TAKE ONE TABLET BY MOUTH TWICE A DAY NEEDED FOR PAIN, MAXIMUM DAILY DOSE = 2 TAKE ONE TABLET BY MOUTH TWICE A DAY NEEDED FOR PAIN, MAXIMUM DAILY DOSE = 2 SOLD: 05/11/2020 [facility] pregabalin 75 MG Oral Capsule [Lyrica] Lyrica 75 MG Lyrica 7 5 MG 05/11/2020 12:00:00 AM EST 1.0 {capsule} active L yrica 75 MG eCW1 ([facility]) Acetaminophen 325 MG / Oxycodone Hydroch loride 5 MG Oral Tablet [Percocet] Percocet 5-325 MG Percocet 5-325 MG 05/11/2020 12:00:00 AM EST 1 .0 {tablet_as_needed} active Percocet 5-32 5 MG eCW1 ([facility]) pregabalin 75 MG Oral Capsule [Lyrica] Lyrica 75 MG Lyrica 7 5 MG 05/11/2020 12:00:00 AM EST 1.0 {capsule} active L yrica 75 MG eCW1 ([facility]) 75 mg 05/11/2020 12:00:00 AM EST capsule 60 TAKE ONE CAPSULE BY MOUTH TWICE A DAY, MAXIMUM DAILY DOSE = 2 TAKE ONE CAPSULE BY MOUTH TWICE A DAY, M JOANNA DAILY DOSE = 2 SOLD: 05/11/2020 [facility] 5-325 mg 04/18/2020 12:00:00 AM EST tablet 30 TAKE ONE TABLET BY MOUTH EVERY DAY , MAXIMUM DAILY DOSE = 1 TABLET TAKE ONE TABLET BY MOUTH EVERY DAY , MAXIMUM DAILY DOSE = 1 TABLET SOLD: 04/18/2020 [facility] 800 mg 04/13/2020 12:00:00 AM EST tablet 90 TAKE ONE TABLET BY MOUTH 3 TIMES A DAY WITH MEALS TAKE ONE TABLET BY MOUTH 3 TIMES A DAY WITH MEALS SOLD : 04/13/2020 [facility] tizanidine 4 MG Oral Tablet TIZANIDINE HCL 04/13/2020 12:00:00 AM EST tablet 90 TAKE ONE TABLET BY MOUTH 3 TIMES A DAY TAKE ONE TABLET BY MO UTH 3 TIMES A DAY SOLD: 04/13/2020 [facility] 5-325 mg 03/20/2020 12:00:00 AM EDT tablet 60 TAKE ONE TABLET BY MOUTH UP TO TWO TIMES A DAY NEEDED FOR SEVERE PAIN , MAXIMUM DAILY DOSE = 2 TABLETS TAKE ONE TABLET BY MOUTH UP TO TWO TIMES A DAY NEEDED FOR SEVERE PAIN , MAXIMUM DAILY DOSE = 2 TABLETS SOLD: 03/20/2020 [facility] 5-325 mg 02/20/2020 12:00:00 AM EDT tablet 90 TAKE ONE TABLET BY MOUTH UP TO THREE TIMES A DAY NEEDED FOR SEVERE PAIN, MAXIMUM DAILY DOSE = THREE TABLETS TAKE ONE TABLET BY MOUTH UP TO THREE PAOLA ES A DAY NEEDED FOR SEVERE PAIN, MAXIMUM DAILY DOSE = THREE TABLETS SOLD: 02/20/2020 [facility] 800 mg 02/20/2020 12:00:00 AM EDT tablet 90 TAKE 1 TABLET BY MOUTH WITH FOOD EVERY 8 HOURS NEEDED TAKE 1 TABLET BY MOUTH WITH FOOD EVERY 8 HOURS NEEDED SOLD: 02/20/2020 [facility] 5-325 mg 01/17/2020 12:00:00 AM EDT tablet 90 TAKE ONE TABLET BY MOUTH UP TO THREE TIMES A DAY NEEDED FOR SEVERE PAIN, MAXIMUM DAILY DOSE = THREE TABLETS TAKE ONE TABLET BY MOUTH UP TO THREE PAOLA ES A DAY NEEDED FOR SEVERE PAIN, MAXIMUM DAILY DOSE = THREE TABLETS SOLD: 01/17/2020 [facility] 400 mg 12/27/2019 12:00:00 AM EDT tablet 21 TAKE ONE TABLET BY MOUTH THREE TIMES A DAY NEEDED FOR PAIN FOR 7 DAYS TAKE ONE TABLET BY MOUTH THREE TIMES A DAY NEEDED FOR PAIN FOR 7 DAYS SOLD: 12/27/2019 [facility] Cyclobenzaprine hydrochloride 10 MG Oral Tablet CYCLOBENZAPR INE HCL 12/27/2019 12:00:00 AM EDT tablet 10 TAKE ONE TABLET BY MOUTH EVERY DAY AT BEDTIME FOR 10 DAYS TAKE ONE TABLET BY MOUTH EVERY DAY AT BEDTIME FOR 10 D AYS SOLD: 12/27/2019 [facility] 800 mg 12/07/2019 12:00:00 AM EDT tablet 90 TAKE ONE TABLET BY MOUTH EVERY 8 HOURS WITH FOOD NEEDED TAKE ONE TABLET BY MOUTH EVERY 8 HOURS W ITH FOOD NEEDED SOLD: 12/07/2019 [facility] 5-325 mg 12/07/2019 12:00:00 AM EDT tablet 90 TAKE ONE TABLET BY MOUTH UP TO THREE TIMES A DAY NEEDED FOR SEVERE PAIN, MAXIMUM DAILY DOSE = THREE TABLETS TAKE ONE TABLET BY MOUTH UP TO THREE PAOLA ES A DAY NEEDED FOR SEVERE PAIN, MAXIMUM DAILY DOSE = THREE TABLETS SOLD: 12/07/2019 [facility] 10 mg 11/24/2019 12:00:00 AM EDT tablet 20 TAKE ONE TABLET BY MOUTH EVERY 6 HOURS NEEDED FOR PAIN FOR 5 DAYS, DO NOT TAKE NAPROXEN OR IBUPROFEN WHILE TAKING TORADOL TAKE ONE TABLET BY MOUTH EVERY 6 HOURS A S NEEDED FOR PAIN FOR 5 DAYS, DO NOT TAKE NAPROXEN OR IBUPROFEN WHILE TAKING TORADOL SOLD: 11/24/2019 [facility] 500 mg 11/23/2019 12:00:00 AM EDT tablet 80 TAKE TWO TABLETS BY MOUTH FOUR TIMES A DAY NEEDED FOR PAIN FOR 10 DAYS TAKE TWO TABLETS BY MOUTH FOUR TIMES A DAY NEEDED FOR PAIN FOR 10 DAYS SOLD: 11/24/2019 [facility] 500 mg 11/23/2019 12:00:00 AM EDT tablet 20 TAKE ONE TABLET BY MOUTH EVERY 12 HOURS FOR 10 DAYS TAKE ONE TABLET BY MOUTH EVERY 12 HOURS FOR 10 DAYS SO LD: 11/24/2019 [facility] 4 mg 11/07/2019 12:00:00 AM EDT tablet 90 TAKE ONE TABLET BY MOUTH UP TO THREE TIMES A DAY NEEDED TAKE ONE TABLET BY MOUTH UP TO THREE PAOLA ES A DAY NEEDED SOLD: 11/07/2019 [facility] 800-160 mg 11/07/2019 12:00:00 AM EDT tablet 6 TAKE ONE TABLET BY MOUTH TWICE A DAY FOR 3 DAYS TAKE ONE TABLET BY MOUTH TWICE A DAY FOR 3 DAYS SOLD: 11/07/2019 [facility] 5-325 mg 11/05/2019 12:00:00 AM EDT tablet 60 TAKE ONE TABLET BY MOUTH EVERY 12 HOURS NEEDED FOR SEVERE PAIN, MAXIMUM DAILY DOSE = TWO TABLETS TAKE ONE TABLET BY MOUTH EVERY 12 HOURS NEEDED FOR SEVERE PAIN, MAXIMUM DAILY DOSE = TWO TABLETS SOLD: 11/07/2019 [facility] 10 mg 10/28/2019 12:00:00 AM EDT tablet 20 TAKE ONE TABLET BY MOUTH EVERY 6 HOURS NEEDED FOR PAIN TAKE ONE TABLET BY MOUTH EVERY 6 HOURS A S NEEDED FOR PAIN SOLD: 10/31/2019 [facility] [id number] 10/28/2019 12:00:00 AM EDT Suspension 240 SWISH 10ML IN MOUTH AND SPIT OUT FOUR TIMES A DAY NEEDED FOR MUSCOSITIS SWISH 10ML IN MOUTH AND SPIT OUT FOUR TIMES A DAY NEEDED FOR MUSCOSITIS SOLD: 10/31/2019 [facility] 5-325 mg 10/07/2019 12:00:00 AM EDT tablet 60 TAKE ONE TABLET BY MOUTH EVERY 12 HOURS NEEDED FOR SEVERE PAIN MAXIMUM DAILY DOSE = 2 TABLETS TAKE ONE TABLET BY MOUTH EVERY 12 HOURS NEEDED FOR SEVERE PAIN MAXIMUM DAILY DOSE = 2 TABLETS SOLD: 10/07/2019 [facility] 875 mg 09/27/2019 12:00:00 AM EDT tablet 20 TAKE ONE TABLET BY MOUTH TWICE A DAY FOR 10 DAYS TAKE ONE TABLET BY MOUTH TWICE A DAY FOR 10 DAYS SOLD: 09/27/2019 [facility] 800 mg 09/23/2019 12:00:00 AM EDT tablet 90 TAKE ONE TABLET BY MOUTH EVERY 8 HOURS NEEDED WITH FOOD TAKE ONE TABLET BY MOUTH EVERY 8 HOURS A S NEEDED WITH FOOD SOLD: 09/23/2019 [facility] 4 mg 09/23/2019 12:00:00 AM EDT tablet 90 TAKE ONE TABLET BY MOUTH THREE TIMES A DAY NEEDED TAKE ONE TABLET BY MOUTH THREE TIMES A DAY NEEDED S OLD: 09/23/2019 [facility] 5-325 mg 09/23/2019 12:00:00 AM EDT tablet 21 TAKE ONE TABLET BY MOUTH EVERY 8 HOURS NEEDED FOR PAIN, MAXIMUM DAILY DOSE = THREE TABLETS TAKE ONE TABLET BY MOUTH EVERY 8 HOURS NEEDED FOR PAIN, MAXIMUM DAILY DOSE = THREE TABLETS SOLD: 09/23/2019 [facility] 20 mg 07/05/2019 12:00:00 AM EST tablet 10 TAKE TWO TABLETS BY MOUTH EVERY DAY TAKE TWO TABLETS BY MOUTH EVERY DAY SOLD: 2019 [facility] 800 mg 07/05/2019 12:00:00 AM EST tablet 30 TAKE ONE TABLET BY MOUTH EVERY 6 HOURS FOR PAIN TAKE ONE TABLET BY MOUTH EVERY 6 HOURS FOR PAIN SOLD: 2019 [facility] Cyclobenzaprine hydrochloride 5 MG Oral Tablet Cyclobenzapri ne HCL 07/05/2019 12:00:00 AM EST active M [facility]ENT ([facility]) Ibuprofen 800 MG Oral Tablet Ibuprofen 07/05/2019 12:00:00 AM EST active MEDENT ([facility]) Prednisone 20 MG Oral Tablet Prednisone 07/05/2019 12:00:00 AM EST active [facility] ([facility]) 5 mg 07/05/2019 12:00:00 AM EST tablet 14 TAKE ONE TABLET BY MOUTH EVERY EVENING NEEDED FOR MUSCLE SPASMS TAKE ONE TABLET BY MOUTH EVERY EVENING A S NEEDED FOR MUSCLE SPASMS SOLD: 2019 [facility] 4 mg 07/04/2019 12:00:00 AM EST tablet 21 TAKE ONE TABLET BY MOUTH EVERY 8 HOURS TAKE ONE TABLET BY MOUTH EVERY 8 HOURS SOLD: 2019 [facility] 300 mg 06/13/2019 12:00:00 AM EST capsule 28 TAKE ONE CAPSULE BY MOUTH EVERY 6 HOURS TAKE ONE CAPSULE BY MOUTH EVERY 6 HOURS SOLD: 06/13/2019 [facility] 800 mg 06/13/2019 12:00:00 AM EST tablet 20 TAKE ONE TABLET BY MOUTH EVERY 6 TO 8 HOURS NEEDED TAKE ONE TABLET BY MOUTH EVERY 6 TO 8 HOURS NEEDED SOLD: 06/13/2019 [facility] 40 mg 05/20/2019 12:00:00 AM EST capsule,delayed release (DR/EC) 60 TAKE 1 CAPSULE BY MOUTH TWICE DAILY FOR 2 MONTHS, THEN 1 AT BEDTIME FOR 4 MONTHS NEEDED TAKE 1 CAPSULE BY MOUTH TWICE DAILY FOR 2 MONTHS, THEN 1 AT BEDTIME FOR 4 MONTHS NEEDED SOLD: 05/21/2019 [facility] Escitalopram 10 MG Oral Tablet ESCITALOPRAM OXALATE 05/20/2019 1 2:00:00 AM EST tablet 30 TAKE ONE TABLET BY MOUTH EVERY D AY TAKE ONE TABLET BY MOUTH EVERY DAY SOLD: 07/04/2019 [facility] 10 mg 05/20/2019 12:00:00 AM EST tablet 90 TAKE ONE TABLET BY MOUTH THREE TIMES A DAY NEEDED FOR SPASMS TAKE ONE TABLET BY MOUTH THREE TIMES A D AY NEEDED FOR SPASMS SOLD: 05/21/2019 [facility] 5-325 mg 05/20/2019 12:00:00 AM EST tablet 120 TAKE 1 TABLET BY MOUTH EVERY 4-6 HOURS NEEDED FOR SEVERE PAIN MAX DAILY DOSE = 4 TAKE 1 TABLET BY MOUTH EVERY 4-6 HOURS NEEDED FOR SEVERE PAIN MAX DAILY DOSE = 4 SOLD: 05/21/2019 [facility] Escitalopram 10 MG Oral Tablet ESCITALOPRAM OXALATE 05/20/2019 1 2:00:00 AM EST tablet 30 TAKE ONE TABLET BY MOUTH EVERY D AY TAKE ONE TABLET BY MOUTH EVERY DAY SOLD: 05/21/2019 [facility] 800 mg 05/20/2019 12:00:00 AM EST tablet 90 TAKE ONE TABLET BY MOUTH THREE TIMES A DAY WITH MEALS NEEDED FOR INFLAMMATION / PAIN TAKE ONE TABLET BY MOUTH THREE TIMES A DAY WITH MEALS NEEDED FOR INFLAMMATION / PAIN SOLD: 05/21/2019 [facility] 100 mg 05/20/2019 12:00:00 AM EST capsule 60 TAKE ONE TABLET BY MOUTH TWO TIMES A DAY TAKE ONE TABLET BY MOUTH TWO TIMES A DAY SOLD: 05/21/2019 [facility] 800 mg 05/05/2019 12:00:00 AM EST tablet 20 TAKE ONE TABLET BY MOUTH EVERY 6 TO 8 HOURS NEEDED TAKE ONE TABLET BY MOUTH EVERY 6 TO 8 HOURS NEEDED SOLD: 05/05/2019 [facility] 300 mg 05/05/2019 12:00:00 AM EST capsule 28 TAKE ONE CAPSULE BY MOUTH EVERY 6 HOURS TAKE ONE CAPSULE BY MOUTH EVERY 6 HOURS SOLD: 05/05/2019 [facility] Insurance Providers Payer name Policy type / Coverage type Policy ID Covered alliance party ID Covered alliance party's relationship to lawson Policy Lawson Plan Information [facility] COMMUNITY PLAN [facility] [id number] SP [id number] [facility] COMM[facility] [id number] SP [id number] [place] [id number] SP [id number] MEDICAID [id number] SP [id number] Managed Care - [facility] Community Plan P [id number] S [id number] Medicaid S [id number] Managed Care - [facility] Community Plan P [id number] S [id number] Medicaid S [id number] S [id number] Managed Care - Community Plan [facility] P [id number] S [id number] [facility] Community Plan Commercial [id number] Self [id number] [facility] Community Plan Commercial [id number] Self [id number] [facility] Community Plan Commercial [id number] Self [id number] [facility] Commercial [id number] Self [id number] [facility] Commercial [id number] Self [id number] Problems, Conditions, and Diagnoses Code Display Name Description Problem Type Effective Dates Data Source(s) G89.29 [id number] Chronic pain Problem 05/02/2020 12:00:00 AM EST eCW1 ([facility]) Z79.891 assisted (current) use of opiate analge sic assisted (current) use of opiate analgesic 11/07/2019 01:47:47 PM EDT [facility] [id number] Follicular disorder, unspecified Follicular disorder, unspecified 11/07/2019 01:47:47 PM EDT [facility] [id number] Long-term current use of opiate analgesi c drug Long-term Current Use of Opiate Analgesic Drug Problem 11/07/2019 12:00:00 AM EDT ATH RONNI ([facility]) 796.2 Elevated blood pressure reading without diagnosis of hypertension Elevated blood pressure reading without diagnosis of hypertension 10/07/2019 01:58:16 PM EDT [facility] [id number] Elevated blood-pressure reading without diagnosis of hypertension Elevated Blood-pressure Reading without Diagnosis of Hypertension Problem 10/07/2019 12:00:00 AM EDT HARPREET ([facility]) [id number] Periapical abscess without sinus Periapical abscess wi thout sinus 09/27/2019 11:49:12 AM EDT [facility] 723.4 Radiculopathy, cervical region Radiculopathy, cervical region 09/23/2019 03:50:50 PM EDT [facility] 724.4 Radiculopathy, lumbar region Radiculopathy, lumbar reg ion 09/23/2019 03:50:50 PM EDT [facility] [id number] Lumbosacral radiculopathy Lumbosacral Radiculopathy Pr oblem 09/23/2019 12:00:00 AM EDT HARPREET ([facility]) [id number] Cervical radiculopathy Cervical Radiculopathy Problem 09/23/2019 12:00:00 AM EDT HARPREET ([facility]) [id number] Endocrine/metabolic screening Endocrine/metabolic Scre ening Problem 08/13/2018 12:00:00 AM EDT - 04/19/2020 12:00:00 AM EST HARPREET ([facility]) Surgeries/Procedures Procedure Description Date Indications Data Source(s) Pain Procedure Log 05/02/2020 12:00:00 AM EST eCW1 ([facility]) Medication: Oxycodone HCL Tab 10mg Orally 05/01/2020 1 2:00:00 AM EST eCW1 ([facility]) Unclassified drugs 05/01/2020 12:00:00 AM EST eCW1 ([facility]) MRI, cervical spine, w/o contrast 07/12/2019 12:00:00 AM EST HARPREET ([facility]) Results ID Date Data Source [id number] 06/07/2020 10:30:00 AM EST [facility] Name Value Range Interpretation Code Description Data Heidi rce(s) Supporting Document(s) SARS coronavirus 2 RNA Not Detected [facility] This lab was ordered by [facility] and reported by [facility]. ID Date Data Source [id number] 05/12/2020 12:00:00 AM EST [facility] Name Value Range Interpretation Code Description Data Heidi rce(s) Supporting Document(s) SARS coronavirus 2 RNA [Presence] in Res piratory specimen by ARIEL with probe detection [facility] and reported by [employer]. ID Date Data Source [id number] 04/28/2020 11:00:00 AM EST [facility] Name Value Range Interpretation Code Description Data Heidi rce(s) Supporting Document(s) SARS coronavirus 2 RNA [facility] This lab was ordered by [facility] and reported by [facility]. ID Date Data Source [id number] 03/06/2020 01:17:27 PM EDT [facility] Measurements & CalculationsHeight: 72 inches (6 ft. 0 in.) 182.88 cm Weight: 263.2 pounds 119.64 kg Body Mass Index (BMI): 35.83BMI Interpretation: ObeseBody Surface Area (BSA): 2.40Weight Management Education Done (Nutrition/Physical Activity)Vital SignsTemperature: 97.3F 36.28C tympanic Pulse Rate: 97 beats/hakan teRespiratory Rate: 18 respirations/minuteBlood Pressure: 154/83 left arm sitting automaticO2 Saturation: 96% Vital Signs performed by: Kristina Newsome LPN, March 06, 2020 1:17 PMMultiple Vital SignsVitals #2BP: 147/103 Performed by: Ankit MCDONALD, March 06, 2020 1:47 PMComments: Sae Newsome LPNInitial Intake Information From: patientRoom #: 1Infectious Disease / Travel ScreeningRecent travel for you or any close contacts? NoHave you had any close contact with anyone diagnosed with or under investigation for COVID-19 (coronavirus)? NoFever? NoRespiratory symptoms: cough, cold, congestion, shortness of breath, difficulty breathing? NoLoss of smell? NoLoss of taste? NoSmoking, Tobacco, Vaping or Smoke Exposure StatusSmoke Status: current every day smokerTobacco Use: YesAdv to Quit: YesDo you vape? NoPassive Smoke Exposure: YesHealthcare HistorySince your last office visit...Have you been admitted to the hospital? NoHave you been to an emergency room (ER) or urgent care clinic? No - [facility] dental painEmergency room (ER) or urgent care date reported today: 11/29/2018Have you seen another healthcare provider? Yes - orthoHave you seen a dentist? Yes - aquaIntake performed by: Kristina Newsome LPN, March 06, 2020 1:18 PMRate Your HealthIn general, would you say your health is? GoodPain AssessmentAre you currently having any pain which... You would like your provider to address? Yes Affects your activity level? YesDepression Screening - PHQ-2Over the last two weeks, have you... Had little interest or pleasure in doing things? Not at all Been feeling down, depressed, or hopeless? Not at all PHQ-2 Score: 0Anxiety Screening - DAVON-2Over the last two weeks, have you been... Feeling nervous, anxious, or on edge? Not at all Unable to stop or control worrying? Not at all DAVON-2 Score: 0Food InsecurityWithin the past year...Did you worry whether your food would run out before you got money to buy more? Never trueWas there a time when the food you bought didn't last and you didn't have money to get more? Never truePain AssessmentLocation: backDuration: chronicFrequency: DailyCharacter/Quality: achingScreening, Brief Intervention, & Referral to Treatment (SBIRT)Pre-Screening Questions How many times have you have 5 or more drinks in a day? 0How many times have you used an illegal drug or used a prescription medication for a non-medical reason? 0Performed by: Kristina Newsome LPN, March 06, 2020 1:18 PMPatient History Medical History:Chronic Back painHTNSurgical History:Rt hand repairFamily History:Diabetes (Mother)Heart disease (Mother)Social/Personal History: Advised to Quit/Tobacco Education: YesChief Complaintfollow-up visitHistory of Present Illness (HPI)34 yo male presents for back burton f/u.Pt was seen by [facility] Dr. Ziegler 02/24/2020, recommendation was for physical therapy and to see Dr. Douglas. It appears that office placed a referral, but then patient also called my office last week and asked for the same referral. Pt states he will be starting physical therapy soon. Recommendation from [facility] was to avoid oxycodone for pain problems as it is highly addictive. Pt attributes elevated BP today to anxiety with a ppointments. Pt is also in the office drinking a can of cocacola soda today. HPI performed by: Ankit MCDONALD, March 06, 2020 1:34 PMTransitions of Care InboundProblem ReviewProblem List was reviewed and/or updated during this visit.Medication Reconciliation & ReviewMedication List was reviewed and/or updated during this visit, including review of any [id number] medications, herbal therapies, and/or supplements.Allergy ReviewAllergy List was reviewed and/or updated during this visit. Patient has no known allergies.Adult Preventive CareScreening Tobacco Screening: Smoking Status: current every day smoker (03/06/2020) Tobacco Use: Currently (03/06/2020) Advised to Quit: Yes (03/06/2020)Labs/Meds/Other Counseling-Nutrition and Physical Activity:BMI Interpretation: Obese (03/06/2020) Counseling: Done (03/06/2020) Physical Activity: Done (03/06/2020)Review of Systems General: Denies loss of appetite, chills, dizziness, fatigue, fever. Cardiovascular: Denies chest pain, palpi tations, feeling faint, peripheral edema, elevated blood pressure. Respiratory: Denies cough, difficulty breathing, shortness of breath. Gastrointestinal: Denies nausea, vomiting, diarrhea, constipation, pain or discomfort. Musculoskeletal: Complains of see HPI, back pain, stiffness. Denies recent injury. Psychiatric: Complains of see HPI, anxiety. Physical ExamGeneral Appearance: well nourished, well hydrated, no acute distressEyes, External: conjunctivae and lids normal, EOMIRespiratory, Auscultation: clear to auscultation bilaterally; no rales, rhonchi, or wheezesCardiovascular, Auscultat ion: S1, S2 audible; no murmur, rub, or gallop; RRRPeripheral Circulation: no clubbing, cyanosis, edema, or varicositiesAbdomen: soft, non-tender, no masses, bowel sounds normalGait & Station: normalOrientation: oriented to time, place, and personMood & Affect: mildly anxious, good eye contact, speech clearJudgment & Insight: intactCare Management Plan Transitions of CareInboundRate Your Hea lthIn general, would you say your health is? 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 This was under the directive of the orthopedist. Continue with the orthopedist, the pain management provider, and physical therapy.Radiculopathy, cervical region (ICD-723.4) (ENK20-L24.12) Assessment: Instructions: As above.Radiculopathy, lumbar region (ICD-724.4) (SNS59-M62 .16) Assessment: Instructions: As above.Spinal stenosis of lumbar region (ICD-724.02) (NJA56-I05.061) Assessment: Instructions: As above.Elevated blood pressure reading without diagnosis of hypertension (ICD-796.2) (ICD10- R03.0) Assessment: Instructions: Likely white coat syndrome and the caffeine today. Continue to monitor at home and if higher than 140/90 consistently, then will need to treat with medication.Patient Instructions/Care Plan: assisted (current) use of opiate analgesic: Wean percocet to twice daily maximum of pain medication x 1 month, then we will further reduce to once daily x 1 month, then stop. This was under the directive of the orthopedist. Continue with the orthopedist, the pain management provider, and physical therapy.Radiculopathy- cervical region: As above.Radiculopathy- lumbar region: As above.Spinal stenosis of lumbar region: As above.Elevated blood pressure reading without diagnosis of hypertension: Likely white coat syndrome and the caffeine today. Continue to monitor at home and if higher than 140/90 consistently, then will need to treat with medication. Plan developed in collaboration with patient and/or familyMedications:PERCOCET 5-325 MG ORAL TABLETIBUPROFEN 800 MG ORAL TABLETTIZANIDINE HCL 4 MG ORAL TABLETMedication Changes:Refilled:PERCOCET 5-325 MG ORAL TABLET-Take 1 tablet po up to two times daily prn severe pain; MDD 2 tablets Qty: 60[Tablet] Refills: 0 Method: ElectronicChanged: To: PERCOCET 5-325 MG ORAL TABLET-Take 1 tablet po up to two times daily prn severe pain; MDD 2 tablets Qty: 60[Tablet] Refills: 0Allergies:N o Known Allergies (updated 03/06/2020) Orders:Adult - Ofc Vst, EST, Level III [CPT-80252] Follow-Up Return to clinic: in 30 days for follow upAdditional Follow-Up: chronic pain follow-up, medication weaningClinical Visit Summary Completed Name Value Range Interpretation Code Description Data Heidi rce(s) Supporting Document(s) ID Date Data Source [id number] 01/18/2020 12:00:00 AM EDT [facility] Name Value Range Interpretation Code Description Data Heidi rce(s) Supporting Document(s) SARS coronavirus 2 RNA [Presence] in Res piratory specimen by ARIEL with probe detection [facility] This lab was ordered by [facility] and reported by [facility]. ID Date Data Source [id number] 01/17/2020 02:04:59 PM EDT [facility] Measurements & CalculationsHeight: 72 inches (6 ft. 0 in.) 182.88 cm Weight: 260.6 pounds 118.45 kg Body Mass Index (BMI): 35.47BMI Interpretation: ObeseBody Surface Area (BSA): 2.39Weight Management Education Done (Nutrition/Physical Activity)Vital SignsTemperature: 96.8F 36C tympanic Pulse Rate: 91 beats/hakan teRespiratory Rate: 18 respirations/minuteBlood Pressure: 156/100 left arm sitting automaticO2 Saturation: 98% Vital Signs performed by: Kristina Newsome LPN, January 17, 2020 2:05 PMVital Signs performed by: Ankit MCDONALD, January 17, 2020 2:19 PMInitial Intake Information From: patientRoom #: 1Infectious Disease / Travel ScreeningRecent travel for you or any close contacts? NoHave you had any close contact with anyone diagnosed with or under investigation for COVID-19 (coronavirus)? NoFever? NoRespiratory symptoms: cough, cold, congestion, shortness of breath, difficulty breathing? NoLoss of smell? NoLoss of taste? NoSmoking, Tobacco, Vaping or Smoke Exposure StatusSmoke Status: current every day smokerTobacco Use: YesAdv to Quit: YesDo you vape? NoPassive Smoke Exposure: YesHealthcare HistorySince your last office visit...Have you been admitted to the hospital? NoHave you been to an emergency room (ER) or urgent care clinic? No - [facility] dental painEmergency room (ER) or urgent care date reported today: 11/29/2018Have you seen another healthcare provider? Yes - orthoHave you seen a dentist? Yes - aquaIntake performed by: Kristina Newsome LPN, January 17, 2020 2:11 PMRate Your HealthIn general, would you say your health is? GoodPain AssessmentAre you currently having any pain which... You would like your provider to address? Yes Affects your activity level? YesDepression Screening - PHQ-2Over the last two weeks, have you... Had little interest or pleasure in doing things? Not at all Been feeling down, depressed, or hopeless? Not at all PHQ-2 Score: 0Anxiety Screening - DAVON-2Over the last two weeks, have you been... Feeling nervous, anxious, or on edge? Not at all Unable to stop or control worrying? Not at all DAVON-2 Score: 0Food InsecurityWithin the past year...Did you worry whether your food would run out before you got money to buy more? NoWas there a time when the food you bought didn't last and you didn't have money to get more? NoPain AssessmentLocation: shoulder/backDuration: chronicFrequency: DailyScreening, Brief Intervention, & Referral to Treatment (SBIRT)Pre-Screening Questions How many times have you have 5 or more drinks in a day? 0How many times have you used an illegal drug or used a prescription medication for a non- medical reason? 0Performed by: Kristina Newsome LPN, January 17, 2020 2:12 PMPatient History Medical History:Chronic Back painHTNSurgical History:Rt hand repairFamily History:Diabetes (Mother)Heart disease (Mother)Social/Personal History: Advised to Quit/Tobacco Education: YesChief Complaintfollow-up visitHistory of Present Illness (HPI)Pt is a 34 y/o male, presents for routine chronic pain follow-up. Visit translated with telephone translation service.Since last visit, patient has been trying to workout, improve to healthier food choices, and has lost 7lbs in the last month. BP remains elevated today in office. 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 There was a miscommunication and [facility] referral was closed. Pt states he only reached out to [facility] due to not hearing from [facility] yet. Needs refill of Percocet. Pt will be flying to [place] 01/21/2020, unknown how long he will be gone. Possibly 1-2 weeks, then will need to quarantine for 2 weeks upon return. Transitions of Care InboundProblem ReviewProblem List was reviewed and/or updated during this visit.Medication Reconciliation & ReviewMedication List was reviewed and/or updated during this visit, including review of any erya-iee-ctkobxz medications, herbal therapies, and/or supplements.Allergy ReviewAllergy List was reviewed and/or updated during this visit. Patient has no known allergies.Adult Preventive CareScreening Tobacco Screening: Smoking Status: current every day smoker (01/17/2020) Tobacco Use: Currently (01/17/2020) Advised to Quit: Yes (01/17/2020)Labs/Meds/Other Counseling- Nutrition and Physical Activity:BMI Interpretation: Obese (01/17/2020) Counseling: Done (01/17/2020) Physical Activity: Done (01/17/2020)Review of Systems General: Denies loss of appetite, chills, dizziness, fatigue, fever. Cardiovascular: Denies chest pain, palpitations, feeling faint, peripheral edema, elevated blood pressure. Respiratory: Denies cough, difficulty breathing, shortness of breath. Gastrointestinal: Denies nausea, vomiting, diarrhea, constipation, pain or discomfort. Musculoskeletal: Complains of see HPI, back pain, joint pain, stiffness. Denies recent injury. Physical ExamGeneral Appearance: well nourished, well hydrated, appears to be in moderate pain, frequently adjusting position and rubbing at right shoulderEyes, Ex ternal: conjunctivae and lids normal, EOMIRespiratory, Auscultation: clear to auscultation bilaterally; no rales, rhonchi, or wheezesCardiovascular, Auscultation: S1, S2 audible; no murmur, rub, or gallop; RRRPeripheral Circulation: no clubbing, cyanosis, edema, or varicositiesAbdomen: soft, non- tender, no masses, bowel sounds normalGait & Station: normalOrientation: oriented to time, place, and personMood & Affect: mildly anxious, good eye contact, speech clearJudgment & Insight: intactCare Management Plan Transitions of CareInboundRate Your HealthIn general, would you say your health is? GoodAssessment & Plan Problems:Assessed:assisted (current) use of opiate analgesic (ICD-V58.69) (UYP67-I67.891) Assessment: Instructions: Continue percocet at this time until a more definitive treatment is established by orthopedist in [place], scheduled next month.Radiculopathy, cervical region (ICD-723.4) (FXY80-H42.12) Assessment: Instructions: As above. Continue Tizanidine and Ibuprofen, Percocet only for severe pain.Radiculopathy, lumbar region (ICD-724.4) (IGV60-D37.16) Assessment: Instructions: As above.Elevated blood pressure reading without diagnosis of hypertension (ICD- 796.2) (JEG88-J91.0) Assessment: Instructions: Improved BPs at home. Likely white coat syndrome. Continue to monitor at home and if higher than 140/90 consistently, then will need to treat with medication.Recommend reduced salt intake, cut back on caffeine and alcohol, increase physical activity. 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 Goal BP is <140/90, please call the office if your blood pressures are consistently running higher than that cutoff. 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 Continue Tizanidine and Ibuprofen, Percocet only for severe pain.Radiculopathy- lumbar region: As above.Elevated blood pressure reading without diagnosis of hypertension: Improved BPs at home. Likely white coat syndrome. Continue to monitor at home and if higher than 140/90 consistently, then will need to treat with medication.Recommend reduced salt intake, cut back on caffeine and alcohol, increase physical activity. We reviewed the detention risks associated with uncontrolled high blood pressure, including stroke and heart attack. Goal BP is <140/90, please call the office if your blood pressures are consistently running higher than that cutoff. Call 911 or report to the closest ER for chest pain, shortness of breath, dizziness, or passing out. Plan developed in collaboration with patient and/or familyMedications:PERCOCET 5-325 MG ORAL TABLETIBUPROFEN 800 MG ORAL TABLETTIZANIDINE HCL 4 MG ORAL TABLETMedication Changes:Refilled:PERCOCET 5-325 MG ORAL TABLET-Take 1 tablet po up to three times daily prn severe pain; MDD 3 tablets Qty: 90[Tablet] Refills: 0 Method: ElectronicAllergies:No Known Allergies (updated 01/17/2020) Orders:Adult - Ofc Vst, EST, Level III [CPT- 40735] Follow-Up Return to clinic: in 6 weeks for follow upAdditional Follow-Up: pain follow-upClinical Visit Summary CompletedMedications:PERCOCET 5-325 MG ORAL TABLET (OXYCODONE-ACETAMINOPHEN) Take 1 tablet po up to three times daily prn severe pain; MDD 3 tablets #90[Tablet] x 0 Entered and Authorized by: Ankit MCDONALD Method used: Electronically to [facility] (retail) [facility] [place] [address] 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 0 in.) 182.88 cm Weight: 267 pounds 6 oz. 121.54 kg Body Mass Index (BMI): 36.39BMI Interpretation: ObeseBody Surface Area (BSA): 2.41Weight Management Education Done (Nutrition/Physical Activity)Vital SignsTemperature: 96.9F 36.06C tympanic Pulse Rate: 87 beats/hakan teRespiratory Rate: 18 respirations/minuteBlood Pressure: 152/92 left arm sitting automaticO2 Saturation: 98% Vital Signs performed by: Kristina Newsome LPN, December 07, 2019 1:24 PMVital Signs performed by: Ankit MCDONALD, December 07, 2019 1:50 PMInitial Intake Information From: patientRoom #: 1Infectious Disease / Travel ScreeningRecent travel for you or any close contacts? NoHave you had any close contact with anyone diagnosed with or under investigation for COVID-19 (coronavirus)? NoFever? NoRespiratory symptoms: cough, cold, congestion, shortness of breath, difficulty breathing? NoLoss of smell? NoLoss of taste? NoSmoking, Tobacco, Vaping or Smoke Exposure StatusSmoke Status: current every day smokerTobacco Use: YesAdv to Quit: YesDo you vape? NoPassive Smoke Exposure: NoHealthcare HistorySince your last office visit...Have you been admitted to the hospital? NoHave you been to an emergency room (ER) or urgent care clinic? NoHave you seen another healthcare provider? Yes - orthoHave you seen a dentist? Yes - aquaIntake performed by: Kristina Newsome LPN, December 07, 2019 1:28 PMRate Your HealthIn general, would you say your health is? GoodPain AssessmentAre you currently having any pain which... You would like your provider to address? Yes Affects your activity level? YesDepression Screening - PHQ-2Over the last two weeks, have you... Had kandice le interest or pleasure in doing things? Not at all Been feeling down, depressed, or hopeless? Not at all PHQ-2 Score: 0Food InsecurityWithin the past year...Did you worry whether your food would run out before you got money to buy more? NoWas there a time when the food you bought didn't last and you didn't have money to get more? NoPain AssessmentPain ScaleNumeric Rating Scale: 7 / 10Location: shoulder and backDuration: chronicFrequency: DailyCharacter/Quality: aching, sharp and pressureIs the pain radiating? NoScreening, Brief Intervention, & Referral to Treatment (SBIRT)Pre-Screening Questions How many times have you have 5 or more drinks in a day? 0How many times have you used an illegal drug or used a prescription medication for a non-medical reason? 0Performed by: Kristina Newsome LPN, December 07, 2019 1:31 PMPatient History Medical History:No known medical historySurgical History:Rt hand repair.Family History:Diabetes (Mother)Heart disease (Mother)Social/Personal History: Advised to Quit/Tobacco Education: YesChief Complaintfollow-up visit: medicationHistory of Present Illness (HPI)Pt is a 34 y/o male, presents for routine pain medication follow-up. Visit translated with phone service. Pt had MR Cervical Spine Without Contrast on 11/02/2019. States he has called [facility] many times and has not received calls back to discuss results or treatment plan. Pt has had no follow-up since his MRI, is not aware of the results of the study. Study shows DDD in cervical region, minimal narrowing of the thecal sac at the C5-C6 and C6-C7, mild left neural foraminal narrowing at C4-C5, straightening of the lordotic curvature of the cervical spine (this can be associated with muscle spasms). Pt would like [place] referral as he is not being treated consistently locally. Continues to take Percocet twice daily, ibuprofen and tizanidine three times daily. Pt's BP elevated today. Admits to poor eating habits and weight gain. No personal hx of HTN. HPI performed by: Ankit Hartman, December 07, 2019 1:50 PMTransitions of Care InboundProblem ReviewProblem List was reviewed and/or updated during this visit.Medication Reconciliation & ReviewMedication List was reviewed and/or updated during this visit, including review of any hlyq-nab-fhaeoyw medications, herbal therapies, and/or supplements.Allergy ReviewAllergy List was reviewed and/or updated during this visit. Patient has no known allergies.Adult Preventive CareScreening Tobacco Screening: Smoking Status: current every day smoker (12/07/2019) Tobacco Use: Currently (12/07/2019) Advised to Quit: Yes (12/07/2019)Labs/Meds/Other Counseling-Nutrition and Physical Activity:BMI Interpretation: Obese (12/07/2019) Counseling: Done (12/07/2019) Physical Activity: Done (12/07/2019)Review of Systems General: Denies loss of appetite, chills, dizziness, fatigue, fever, headache, feeling ill. Cardiovascular: Denies chest pain, palpitations, feeling faint, peripheral edema, elevated blood pressure. Gastrointestinal: Denies nausea, vomiting, diarrhea, pain or discomfort. Musculoskeletal: Complains of see HPI, back pain, joint pain, muscle aches, stiffness. Denies recent injury. Neurologic: Complains of see HPI, weakness, numbness/tingling. Denies slurred speech, feeling faint. Physical ExamGeneral Appearance: well nourished, well hydrated, appears to be in moderate pain, frequently adjusting position while sitting on exam tableEyes, External: conjunctivae and lids normal, EOMIRespiratory, Auscultation: clear to auscultation bilaterally; no rales, rhonchi, or wheezesCardiovascular, Auscultation: S1, S2 audible; no murmur, rub, or gallop; RRRPeripheral Circulation: no clubbing, cyanosis, edema, or varicositiesAbdomen: soft, non- tender, no masses, bowel sounds normalGait & Station: normalOrientation: oriented to time, place, and personMood & Affect: anxious and fidgiting, good eye contact, speech clearJudgment & Insight: intactCare Management Plan Transitions of CareInboundRate Your HealthIn general, would you say your health is? GoodAssessment & Plan Problems:Assessed:assisted (current) use of opiate analgesic (ICD-V58.69) (OKM21-O32.891) Assessment: Instructions: Continue percocet at this time until a more definitive treatment is established by machine specialist in [place].Radiculopathy, cervical region (ICD-723.4) (DDI69-S09.12) Assessment: Instructions: Referred to spinal specialist in [place]. Continue current medications at this time with an increase to three times a day if needed for percocet. Reviewed risk of dependency and addiction.Radiculopathy, lumbar region (ICD-724.4) (FGS62-E21.16) Assessment: Instructions: As above.Elevated blood pressure reading without diagnosis of hypertension (ICD-796.2) (VYW41-F75.0) Assessment: Instructions: Strict portion size and healthy weight loss efforts, reduce salt intake. 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 Continue current medications at this time with an increase to three times a day if needed for percocet. Reviewed risk of dependency and addiction.Radiculopathy- lumbar region: As above.Elevated blood pressure reading without diagnosis of hypertension: Strict portion size and healthy weight loss efforts, reduce salt intake. If BP remains elevated then we need to consider treating your blood pressure. Plan developed in collaboration with patient and/or familyMedications:PERCOCET 5-325 MG ORAL TABLETIBUPROFEN 800 MG ORAL TABLETTIZANIDINE HCL 4 MG ORAL TABLETMedication Changes:Refilled:PERCOCET 5-325 MG ORAL TABLET-Take 1 tablet po up to three times daily prn severe pain; MDD 3 tablets Qty: 90[Tablet] Refills: 0 Method: ElectronicIBUPROFEN 800 MG ORAL TABLET-Take 1 tablet po with food q 8 h rs prn Qty: 90[Tablet] Refills: 1 Method: ElectronicRemoved:BACTRIM DS 800- 160 MG ORAL TABLET-Take 1 tablet po BID x 3 days Qty: 6[Tablet] Refills: 0Changed: To: PERCOCET 5-325 MG ORAL TABLET-Take 1 tablet po up to three times daily prn severe pain; MDD 3 tablets Qty: 90[Tablet] Refills: 0Allergies:No Known Allergies (updated 12/07/2019) Orders:Adult - Ofc Vst, EST, Level III [CPT-34348] Pain Management Consult [CPT-45851] Follow-Up Return to clinic: in 60 days for follow upAdditional Follow-Up: back painClinical Visit Summary CompletedMedications:IBUPROFEN 800 MG ORAL TABLET (IBUPROFEN) Take 1 tablet po with food q 8 hrs prn #90[Tablet] x 1 Route:ORAL Entered and Authorized by: Ankit MCDONALD Method used: Electronically to [facility] (retail) [address] [place] [address] Note to Pharmacy: Route: ORAL; Indications: RADICULOPATHY, CERVICAL REGION;RADICULOPATHY, LUMBAR REGION RxID: [id number] 5-325 MG ORAL TABLET (OXYCODONE- ACETAMINOPHEN) Take 1 tablet po up to three times daily prn severe pain; MDD 3 tablets #90[Tablet] x 0 Entered and Authorized by: Ankit MCDONALD Method used: Electronically to [facility] (retail) [address] [place] [address] Indications: SENIOR CARE (CURRENT) USE OF OPIATE ANALGESIC;RADICULOPATHY, CERVICAL REGION;RADICULOPATHY, LUMBAR REGION RxID: [id number] BACTRIM DS 800-160 MG ORAL TABLET (SULFAMETHOXAZOLE- TRIMETHOPRIM) Take 1 tablet po BID x 3 days #6[Tablet] x 0 Route:ORAL Entered and Authorized by: Ankit MCDONALD Method used: Electronically to [facility] (retail) [address] [place] [address] RxID: [id number] signed by Ankit MCDONALD on 12/16/2019 at 2:10 PM Name Value Range Interpretation Code Description Data Heidi rce(s) Supporting Document(s) ID Date Data Source [id number] 11/07/2019 01:18:58 PM EDT [facility] Measurements & CalculationsHeight: 72 inches (6 ft. 0 in.) 182.88 cm Weight: 262 pounds 119.09 kg Body Mass Index (BMI): 35.66BMI Interpretation: ObeseBody Surface Area (BSA): 2.39Weight Management Education Done (Nutrition/Physical Activity)Vital SignsTemperature: 97.3F tympanic Pulse Rate: 97 beats/minuteRespiratory Rate: 18 respirations/minuteBlood Pressure: 139/87 right arm sitting automaticO2 Saturation: 97% room airVital Signs performed by: Renay Welch LPN, November 07, 2019 1:27 PMInitial Intake Information From: patientRoom #: 2Infectious Disease / Travel ScreeningRecent travel for you or any close contacts? NoHave you had any close contact with anyone diagnosed with or under investigation for COVID-19 (coronavirus)? NoFever? NoRespiratory symptoms: cough, cold, congestion, shortness of breath, difficulty breathing? NoLoss of smell? NoLoss of taste? NoSmoking, Tobacco, Vaping or Smoke Exposure StatusSmoke Status: current every day smokerTobacco Use: YesDo you vape? NoHealthcare HistorySince your last office visit...Have you been admitted to the hospital? NoHave you been to an emergency room (ER) or urgent care clinic? Yes - [facility] dental painHave you seen another healthcare provider? Yes - orthoHave you seen a dentist? Yes - aquaIntake performed by: Renay Welch LPN, November 07, 2019 1:21 PMRate Your HealthIn general, would you say your health is? GoodPain AssessmentAre you currently having any pain which... You would like your provider to address? Yes Affects your activity level? YesDepression Screening - PHQ-2Over the last two weeks, have you... Had little interest or pleasure in doing things? Not at all Been feeling down, depressed, or hopeless? Not at all PHQ-2 Score: 0Anxiety Screening - DAVON-2Over the last two weeks, have you been... Feeling nervous, anxious, or on edge? Not at all Unable to stop or control worrying? Not at all DAVON-2 Score: 0Pain AssessmentPain ScaleNumeric Rating Scale: 7 / 10Location: shoulder and back Duration: chronicCharacter/Quality: aching, sharp and pressureIs the pain radiating? NoScreening, Brief Intervention, & Referral to Treatment (SBIRT)Pre-Screening Questions How many times have you have 5 or more drinks in a day? 0How many times have you used an illegal drug or used a prescription medication for a non-medical reason? 0Performed by: Renay Welch LPN, November 07, 2019 1:22 PMPatient History Medical History:No known medical historySurgical History:Rt hand repair.Family History:Diabetes (Mother)Heart disease (Mother)Social/Personal History: Chief ComplaintpainHistory of Present Illness (HPI)34 yo male here for follow up for chronic back and shoulder pain, on narcotic therapy.Pt reports he had MRI done last week, no results of MRI received as this office wasn't the ordering provider. Pt states he doesn't have a pain management appt due to COVID19, states he will call them when that office is open (Dr. Nguyen). He continues to report an issue with Dr. Douglas's office because they don't have an industrial welder for him to use and he doesn't have anyone to bring with him. Denies any other prescription medications besides from this provider. Pt states about 2 weeks ago he started rash on his stomach, genital area and legs that is itchy. States it itches a lot on the outside of penis and legs and stomach. States his recently had full panel of STD testing and that was negative. HPI performed by: Ankit MCDONALD, November 07, 2019 1:33 PMTransitions of Care InboundProblem ReviewProblem List was reviewed and/or updated during this visit.Medication Reconciliation & ReviewMedication List was reviewed and/or updated during this visit, including review of any szwv-fut-sygjknw medications, herbal therapies, and/or supplements.Allergy ReviewAllergy List was reviewed and/or updated during this visit. Patient has no known allergies.Adult Preventive CareProvider Calculated and Reviewed all Clinical Protocols for patient today. Labs/Meds/Other Counseling-Nutrition and Physical Activity:BMI Interpretation: Obese (11/07/2019) Counseling: Done (11/07/2019) Physical Activity: Done (11/07/2019)Review of Systems General: Denies loss of appetite, chills, dizziness, fatigue, fever, headache, feeling ill. Cardiovascular: Denies chest pain, palpitations, feeling faint. Respiratory: Denies cough, difficulty breathing, shortness of breath. Gastrointestinal: Denies nausea, vomiting, diarrhea, constipation, pain or discomfort. Genitourinary: Complains of see HPI, genital itching. Denies pain with urination, burning with urination, urinary frequency, incomplete emptying, blood in urine, painful intercourse, penile discharge, genital foul odor, genital sores. Musculoskeletal: Complains of see HPI, back pain, joint pain, stiffness. Denies joint swelling, recent injury. Skin: Complains of see HPI, rash, itching. Neurologic: Denies feeling faint. Physical ExamGeneral Appearance: well nourished, well hydrated, appears to be in moderate pain, frequently adjusting position while sitting on exam tableEyes, External: conjunctivae and lids normal, EOMIRespiratory, Auscultation: clear to auscultation bilaterally; no rales, rhonchi, or wheezesRespiratory, Effort: no intercostal retractions or use of accessory musclesCardiovascular, Auscultation: S1, S2 audible; no murmur, rub, or gallop; RRRPeripheral Circulation: no clubbing, cyanosis, edema, or varicositiesAbdomen: soft, non-tender, no masses, bowel sounds normalExternal Genitalia: few scattered dry excoriated and scarred lesions on shaft of penis, no dischargeUrethra: no dischargePenis: no discharge, circumsizedGait & Station: normalSkin, Inspection: diffuse folliculitis with erythematous follicles without drainage or expanding erythema, significant excoriation, full body with evidence of hair shaving (arms, legs, trunk, genitals)Orientation: oriented to time, place, and personJudgment & Insight: intactChaperone During Exam: Tatiana Daniels Management Plan Transitions of CareInboundRate Your HealthIn general, would you say your health is? GoodAssessment & Plan Problems:Added: Follicular disorder, unspecified (ZSV53-C39.9) Assessment: Instructions: Concern for folliculitis from shaving with same razor all over the body. Please change razor blade or sanitize with rubbing alcohol.assisted (current) use of opiate analgesic (ICD-V58.69) (PYM63-M59.891) Assessment: Instructions: Urine drug screen today for routine purposes.Assessed:Radiculopathy, lumbar region (ICD-724.4) (JNE79-G31.16) Assessment: Instructions: While we are waiting for more definite treatment (pending MRI and pain management plan), will continue ibuprofen, tizanidine, and percocet for severe pain. The medication you were prescribed today is a controlled substance. We have reviewed alternative treatment options and agree this is the most appropriate treatment at this time. We reviewed risks of taking this medication, including but not limited to: addiction, sedation, overdose. Taking more than prescribed or taking with another controlled substance can result in overdose or , no drinking alcohol, no driving/operating heavy machinery while taking this medication. Keep out of the reach of children.Refills today, urine drug screen collected today.Radiculopathy, cervical region (ICD-723.4) (WLZ16-W80.12) Assessment: Instructions: As above.Removed:Acute bronchitis, unspecified (KHS30-N33.9), Periapical abscess without sinus (JPB44-V21.7), Acute low back pain (ICD-724.2) (AKO80-K43.5)Patient Instructions/Care Plan: Radiculopathy- lumbar region: While we are waiting for more definite treatment (pending MRI and pain management plan), will continue ibuprofen, tizanidine, and percocet for severe pain. The medication you were prescribed today is a controlled substance. We have reviewed alternative treatment options and agree this is the most appropriate treatment at this time. We reviewed risks of taking this medication, including but not limited to: addiction, sedation, overdose. Taking more than prescribed or taking with another controlled substance can result in overdose or , no drinking alcohol, no driving/operating heavy machinery while taking this medication. Keep out of the reach of children.Refills today, urine drug screen collected today.Radiculopathy- cervical region: As above.Follicular disorder- unspecified: Concern for folliculitis from shaving with same razor all over the body. Please change razor blade or sanitize with rubbing alcohol.assisted (current) use of opiate analgesic: Urine drug screen today for routine purposes. Plan developed in collaboration with patient and/or familyMedications:BACTRIM DS 800-160 MG ORAL TABLETPERCOCET 5-325 MG ORAL TABLETIBUPROFEN 800 MG ORAL TABLETTIZANIDINE HCL 4 MG ORAL TABLETMedication Changes:Refilled:PERCOCET 5-325 MG ORAL TABLET-Take 1 tablet po q 12 hrs prn severe pain; MDD 2 tablets Qty: 60[Tablet] Refills: 0 Method: ElectronicTIZ ANIDINE HCL 4 MG ORAL TABLET-Take 1 tablet po up to TID prn Qty: 90[Tablet] Refills: 1 Method: ElectronicNew Prescription:BACTRIM DS 800-160 MG ORAL TABLET-Take 1 tablet po BID x 3 days Qty: 6[Tablet] Refills: 0 Method: ElectronicAllergies:No Known Allergies (updated 11/07/2019) Orders:Urine Drug Screen w/ Confirmation [CPT-22257] Adult - Ofc Vst, EST, Level III [CPT-26930] Follow-Up Return to clinic: in 30 days for follow upAdditional Follow-Up: pain follow-upClinical Visit Summary CompletedMedications:TIZANIDINE HCL 4 MG ORAL TABLET (TIZANIDINE HCL) Take 1 tablet po up to TID prn #90[Tablet] x 1 Route:ORAL Entered and Authorized by: Ankit MCDONALD Method used: Electronically to [facility] (retail) [address] [place] [address] Fax: Note to Pharmacy: Route: ORAL; Indications: RADICULOPATHY, CERVI [place]OH[place] REGION;RADICULOPATHY, LUMBAR REGION RxID: [id number] 5- 325 MG ORAL TABLET (OXYCODONE-ACETAMINOPHEN) Take 1 tablet po q 12 hrs prn severe pain; MDD 2 tablets #60[Tablet] x 0 Entered and Authorized by: Ankit MCDONALD Method used: Electronically to [facility] (retail) [address] [place] [address] RxID: [id number] DS 800-160 MG ORAL TABLET (SULFAMETHOXAZOLE-TRIMETHOPRIM) Take 1 tablet po BID x 3 days #6[Tablet] x 0 Route:ORAL Entered and Authorized by: Ankit MCDONALD Method used: Electronically to [facility] (retail) [address] [place] [address] Note to Pharmacy: Route: ORAL; Indications: FOLLICULAR DISORDER, UNSPECIFIED RxID: [id number] signed by Ankit MCDONALD on 11/14/2019 at 9:42 AM Name Value Range Interpretation Code Description Data Heidi rce(s) Supporting Document(s) ID Date Data Source [id number] 10/07/2019 01:28:35 PM EDT [facility] Measurements & CalculationsHeight: 72 inches (6 ft. 0 in.) 182.88 cm Weight: 266 pounds 120.91 kg Body Mass Index (BMI): 36.21BMI Interpretation: ObeseBody Surface Area (BSA): 2.41Weight Management Education Done (Nutrition/Physical Activity)Vital SignsTemperature: 97.9F oral Pulse Rate: 100 beats/minuteRespiratory Rate: 18 respirations/minuteBlood Pressure: 157/109 right arm sitting automaticO2 Saturation: 96% room airVital Signs performed by: Renay Welch LPN, October 07, 2019 1:37 PMVital Signs performed by: Ankit MCDONALD, October 07, 2019 1:45 PMMultiple Vital SignsVitals #2BP: 164/103 Performed by: Renay Welch LPN, October 07, 2019 2:02 PMComments: right armInitial Intake Information From: patientRoom #: 1Infectious Disease / Travel ScreeningRecent travel for you or any close contacts? NoHave you had any close contact with anyone diagnosed with or under investigation for COVID-19 (coronavirus)? NoFever? NoRespiratory symptoms: cough, cold, congestion, shortness of breath, difficulty breathing? NoLoss of smell? NoLoss of taste? NoSmoking, Tobacco, Vaping or Smoke Exposure StatusSmoke Status: current every day smokerTobacco Use: YesAdv to Quit: YesDo you vape? NoPassive Smoke Exposure: YesHealthcare HistorySince your last office visit...Have you been admitted to the hospital? NoHave you been to an emergency room (ER) or urgent care clinic? NoHave you seen another healthcare provider? Yes - orthoHave you seen a dentist? NoIntake performed by: Renay Welch LPN, October 07, 2019 1:33 PMRate Your HealthIn general, would you say your health is? GoodPain AssessmentAre you currently having any pain which... You would like your provider to address? Yes Affects your activity level? YesDepression Screening - PHQ-2Over the last two weeks, have you... Had little interest or pleasure in doing things? Not at all Been feeling down, depressed, or hopeless? Not at all PHQ-2 Score: 0Pain AssessmentPain ScaleNumeric Rating Scale: 6 / 10Location: shoulder and backDuration: chronicCharacter/Quality: aching, sharp and pressureIs the pain radiating? NoScreening, Brief Intervention, & Referral to Treatment (SBIRT)Pre-Screening Questions How many times have you have 5 or more drinks in a day? 0How many times have you used an illegal drug or used a prescription medication for a non-medical reason? 0Performed by: Renay Welch LPN, October 07, 2019 1:34 PMPatient History Medical History:No known medical historySurgical History:Rt hand repair.Family History:Diabetes (Mother)Heart disease (Mother)Social/Personal History: Advised to Quit/Tobacco Education: YesChief Complaintback and shoulder painHistory of Present Illness (HPI)34 yo male here for back and shoulder pain follow up.Pt states today the pain is pulsating. Denies change in physical activity. Since last visit, has needed the Percocet twice daily, but with his dental infection he increased to three times daily and is therefore out. Pt states he is congested and intermittent sore throat over the last 3 weeks. Currently on Amoxicillin for dental infection, has an appt with dentist (Nataly Zavala) next week for extraction. HPI performed by: Ankit MCDONALD, October 07, 2019 1:45 PMTransitions of Care InboundProblem ReviewProblem List was reviewed and/or updated during this visit.Medication Reconciliation & ReviewMedication List was reviewed and/or updated during this visit, including review of any tpnj-nac-cacsjhq medications, herbal therapies, and/or supplements.Allergy ReviewAllergy List was reviewed and/or updated during this visit. Patient has no known allergies.Adult Preventive CareProvider Calculated and Reviewed all Clinical Protocols for patient today. Screening Tobacco Screening: Smoking Status: current every day smoker (10/07/2019) Tobacco Use: Currently (10/07/2019) Advised to Quit: Yes (10/07/2019)Labs/Meds/Other Counseling-Nutrition and Physical Activity:BMI Interpretation: Obese (10/07/2019) Counseling: Done (10/07/2019) Physical Activity: Done (10/07/2019)Review of Systems General: Denies loss of appetite, chills, dizziness, fatigue, fever, headache, feeling ill. Ears/Nose/Throat: Complains of see HPI, nasal congestion, sore throat, tooth pain. Cardiovascular: Denies chest pain, palpitations, feeling faint, peripheral edema, elevated blood pressure. Respiratory: Denies cough, difficulty breathing, shortness of breath, wheezing. Gastrointestinal: Denies nausea, vomiting, diarrhea, constipation, pain or discomfort. Musculoskeletal: Complains of back pain, joint pain, stiffness. Denies recent injury. Neurologic: Denies feeling faint. Physical ExamGeneral Appearance: well nourished, well hydrated, appears to be in moderate pain, frequently adjusting position while sitting on exam tableEyes, External: conjunctivae and lids normal, EOMILips/Teeth/Gums: diffuse carious and broken teeth with exposed structures, no erythema or edemaPharynx: tongue normal, posterior pharynx without erythema or exudate, no thrush/aphthous ulcerNeck: supple, no masses, trachea midline, full range of motion of neckRespiratory, Auscultation: clear to auscultation bilaterally; no rales, rhonchi, or wheezesCardiovascular, Auscultation: S1, S2 audible; no murmur, rub, or gallop; RRRPeripheral Circulation: no clubbing, cyanosis, edema, or varicositiesAbdomen: soft, non- tender, no masses, bowel sounds normalGait & Station: normalBack: limited flexion, extension, and rotation due to guardingSkin, Inspection: no rashes, lesions, or ulcerationsOrientation: oriented to time, place, and personMood & Affect: affect irritable, anxious and fidgiting throughout exam, frequently rubbing his forehead with his hand and speaking with hand gesturesJudgment & Insight: intactCare Management Plan Transitions of CareInboundRate Your HealthIn general, would you say your health is? GoodAssessment & Plan Problems:Added: Elevated blood pressure reading without diagnosis of hypertension (ICD-796.2) (XXG55-U29.0) Assessment: Instructions: BP high today. Please cut back on coffee, alcohol, salt, and cigarettes, these raise your blood pressure.Assessed:Periapical abscess without sinus (EPH33-P40.7) Assessment: Instructions: Improved, finish antibiotics. Keep appointment next week for extraction.Radiculopathy, lumbar region (ICD-724.4) (SME69-U50.16) Assessment: Instructions: While we are waiting for more definite treatment (pending MRI and pain management plan), will continue ibuprofen, tizanidine, and percocet for severe pain. The medication you were prescribed today is a controlled substance. We have reviewed alternative treatment options and agree this is the most appropriate treatment at this time. We reviewed risks of taking this medication, including but not limited to: addiction, sedation, overdose. Taking more than prescribed or taking with another controlled substance can result in overdose or , no drinking alcohol, no driving/operating heavy machinery whi le taking this medication. Keep out of the reach of childrenRadiculopathy, cervical region (ICD-723.4) (GST93-M06.12) Assessment: Instructions: As above. Bring your pill bottles and be prepared for random urine drug screens throughout the time you receive narcotics from this office. Follow-up every 30 days to continue receiving refills.Patient Instructions/Care Plan: Periapical abscess without sinus: Improved, finish antibiotics. Keep appointment next week for extraction.Radiculopathy- lumbar region: While we are waiting for more definite treatment (pending MRI and pain management plan), will continue ibuprofen, tizanidine, and percocet for severe pain. The medication you were prescribed today is a controlled substance. We have reviewed alternative treatment options and agree this is the most appropriate treatment at this time. We reviewed risks of taking this medication, including but not limited to: addiction, sedation, overdose. Taking more than prescribed or taking with another controlled substance can result in overdose or , no drinking alcohol, no driving/operating heavy machinery while taking this medication. Keep out of the reach of childrenRadiculopathy- cervical region: As above. Bring your pill bottles and be prepared for random urine drug screens throughout the time you receive narcotics from this office. Follow-up every 30 days to continue receiving refills.Elevated blood pressure reading without diagnosis of hypertension: BP high today. Please cut back on coffee, alcohol, salt, and cigarettes, these raise your blood pressure. Plan developed in hui aboration with patient and/or familyMedications:PERCOCET 5-325 MG ORAL TABLETIBUPROFEN 800 MG ORAL TABLETTIZANIDINE HCL 4 MG ORAL TABLETMedication Changes:Refilled:PERCOCET 5-325 MG ORAL TABLET-Take 1 tablet po q 12 hrs prn severe pain; MDD 2 tablets Qty: 60[Tablet] Refills: 0 Method: ElectronicChanged: To: PERCOCET 5-325 MG ORAL TABLET-Take 1 tablet po q 12 hrs prn severe pain; MDD 2 tablets Qty: 60[Tablet] Refills: 0Allergies:No Known Allergies (updated 10/07/2019) Orders:Adult - Ofc Vst, EST, Level III [CPT- 13231] Follow-Up Return to clinic: in 30 days for follow upAdditional Follow-Up: chronic painClinical Visit Summary CompletedMedications:PERCOCET 5-325 MG ORAL TABLET (OXYCODONE-ACETAMINOPHEN) Take 1 tablet po q 12 hrs prn severe pain; MDD 2 tablets #60[Tablet] x 0 Entered and Authorized by: Ankit MCDONALD Method used: Electronically to [facility] (retail) [address] [place] [address] Note to Pharmacy: Route: ORAL; RxID: [id number] signed by Ankit MCDONALD on 10/19/2019 at 8:45 AM Name Value Range Interpretation Code Description Data Heidi rce(s) Supporting Document(s) ID Date Data Source [id number] 09/27/2019 11:27:05 AM EDT [facility] Measurements & CalculationsHeight: 72 inches 182.88 cm Weight: 264.4 pounds 120.18 kg Body Mass Index (BMI): 35.99BMI Interpretation: ObeseBody Surface Area (BSA): 2.40Weight Management Education Done (Nutrition/Physical Activity)Vital SignsTemperature: 97.3F 36.28C tympanic Pulse Rate: 90 beats/minuteRespiratory Rate: 20 respirations/minuteBlood Pressure: 131/89 right arm sitting automaticO2 Saturation: 96% room airVital Signs performed by: Kristina Tirado , September 27, 2019 11:29 AMInitial Intake Information From: patientSmoking, Tobacco, Vaping or Smoke Exposure StatusSmoke Status: current every day smokerTobacco Use: YesPassive Smoke Exposure: YesSocial/Personal History: Chief [id number] SWOLLEN 2 DAYS NO SLEEPING OR EATINGHistory of Present Illness (HPI)Pt is a 34 y/o male, presents for dental pain.Pt states pain began 3 days ago, accompanied by facial swelling. States the pain has been so severe he hasn't been able to eat or sleep in 2 days. Denies fever. He has called his dentist, but states no one answers the phone, he believes they are closed due to COVID19 pandemic.Allergy Review Patient has no known allergies.Adult Preventive CareLabs/Meds/Other Counseling- Nutrition and Physical Activity:BMI Interpretation: Obese (09/27/2019) Counseling: Done (09/27/2019) Physical Activity: Done (09/27/2019)Review of Systems General: Complains of loss of appetite, headache. Denies chills, dizziness, fatigue, fever. Ears/Nose/Throat: Complains of tooth pain, swollen glands. Denies sore throat, hoarseness, difficulty swallowing. Gastrointestinal: Denies nausea, vomiting, diarrhea, pain or discomfort. Skin: Denies redness, itching. Physical ExamGeneral Appearance: well nourished, well hydrated, appears to be in significant painHead/Face, Inspection: right sided lower facial swellingEyes, External: conjunctivae and lids normal, EOMILips/Teeth/Gums: diffuse carious and broken teeth with exposed structures, severe soft tissue facial swelling overlying right jaw, no clear focal abscess location visualizedPharynx: tongue normal, posterior pharynx without erythema or exudateNeck: FROM, tender adenopathy on the rightRespiratory, Auscultation: clear to auscultation bilaterally; no rales, rhonchi, or wheezesCardiovascular, Auscultation: S1, S2 audible; no murmur, rub, or gallop; RRRGait & Station: normalOrientation: oriented to time, place, and personJudgment & Insight: intactAssessment & Plan Problems:Added: Periapical abscess without sinus (ICD10- K04.7) Assessment: Instructions: Start amoxicillin twice daily x 10 days. Call your dentist to ask about emergency procedure/extraction. If they are not able to, then please call our dental office for evaluation. Continue with warm compresses, tylenol, ibuprofen, percocet for severe pain. ER for worsening pain, swelling, or fever.Assessment not Saved Periapical abscess without sinus (OBF52-Z13.7): Comment OnlyInstructions: Start amoxicillin twice daily x 10 days. Call your dentist to ask about emergency procedure/extraction. If they are not able to, then please call our dental office for evaluation. Continue with warm compresses, tylenol, ibuprofen, percocet for severe pain. ER for worsening pain, swelling, or fever.Patient Instructions/Care Plan: Periapical abscess without sinus: Start amoxicillin twice daily x 10 days. Call your dentist to ask about emergency procedure/extraction. If they are not able to, then please call our dental office for evaluation. Continue with warm compresses, tylenol, ibuprofen, percocet for severe pain. ER for worsening pain, swelling, or fever. Plan developed in collaboration with patient and/or familyMedication Changes:New Prescription:AMOXICILLIN 875 MG ORAL TABLET- Take 1 tablet po BID x 10 days Qty: 20[Tablet] Refills: 0 Method: ElectronicOrders:Adult - Ofc Vst, EST, Level II [CPT-80431] Follow-Up Return to clinic: as needed Clinical Visit Summary CompletedMedications:AMOXICILLIN 875 MG ORAL TABLET (AMOXICILLIN) Take 1 tablet po BID x 10 days #20[Tablet] x 0 Route:ORAL Entered and Authorized by: Ankit MCDONALD Method used: Electronically to [facility] (retail) [address] [place] [address] Fax: Note to Pharmacy: Route: ORAL; Indications: PERIAPICAL ABSCESS WITHOUT SINUS RxID: [id number] signed by Ankit MCDONALD on 10/04/2019 at 1:19 PM Name Value Range Interpretation Code Description Data Heidi rce(s) Supporting Document(s) ID Date Data Source [id number] 09/23/2019 03:10:28 PM EDT [facility] Measurements & CalculationsHeight: 72 inches (6 ft. 0 in.) 182.88 cm Weight: 267 pounds 6 oz. 121.54 kg Body Mass Index (BMI): 36.39BMI Interpretation: ObeseBody Surface Area (BSA): 2.41Weight Management Education Done (Nutrition/Physical Activity)Vital SignsTemperature: 97.0F tympanic Pulse Rate: 78 beats/minuteResp iratory Rate: 18 respirations/minuteBlood Pressure: 136/88 left arm sitting automaticO2 Saturation: 98% room airVital Signs performed by: Renay Welch LPN, September 23, 2019 3:22 PMVital Signs performed by: Ankit MCDONALD, September 23, 2019 3:26 PMInitial Intake Information from: patientRoom #: 2Smoking, Tobacco, Vaping or Smoke Exposure StatusSmoke Status: current every day smokerTobacco Use: YesAdv to Quit: YesDo you vape? NoPassive Smoke Exposure: YesHealthcare HistorySince your last office visit...Have you been admitted to the hospital? NoHave you been to an emergency room (ER) or urgent care clinic? NoHave you seen another healthcare provider? NoHave you seen a dentist? NoRate Your HealthIn general, would you say your health is? GoodPain AssessmentAre you currently having any pain which... You would like your provider to address? Yes Affects your activity level? YesInfectious Disease / Travel ScreeningRecent travel for you or any close contacts? YesHave you had any close contact with anyone diagnosed with or under investigation for COVID-19 (coronavirus)? NoDetails: 2 months ago PRHave you had any of the following symptoms recently? Fever? NoRespiratory symptoms: cough, cold, congestion, shortness of breath, difficulty breathing? NoPain AssessmentPain ScaleNumeric Rating Scale: 7 / 10Location: shoulder and backDuration: chronicScreening, Brief Intervention, & Referral to Treatment (SBIRT)Pre-Screening Questions How many times have you have 5 or more drinks in a day? 0How many times have you used an illegal drug or used a prescription medication for a non-medical reason? 0Performed by: Renay Welch LPN, September 23, 2019 3:18 PMPatient History Medical History:No known medical historySurgical History:Rt hand repair.Family History:Diabetes (Mother)Heart disease (Mother)Social/Personal History: Advised to Quit/Tobacco Education: YesChief Complaintback and shoulder painHistory of Present Illness (HPI)34 yo male here for chronic back and right shoulder pain. Today's visit translated by translation phone, [place]an.Pt states he does not go to pain management due to no one speaking bah[place]i there. Pt states he went one time, but they reportedly a sked for him to bring a cultural anthropology professor to his follow-up appt for injections; pt states he doesn't have anyone that can go with him. Pt states all his surgeries are on hold until after the virus is over. Pt states he is out of all his meds at this time: ibuprofen, tizanidine, pain management. Pt reports improvement when laying flat on back. HPI performed by: Ankit MCDONALD, September 23, 2019 3:29 PMTransitions of Care InboundProblem ReviewProblem List was reviewed and/or updated during this visit.Medication Reconciliation & ReviewMedication List was reviewed and/or updated during this visit, including review of any bpre-hib-zpmdmyq medications, herbal therapies, and/or supplements.Allergy ReviewAllergy List was reviewed and/or updated during this visit. Patient has no known allergies.Adult Preventive CareProvider Calculated and Reviewed all Clinical Protocols for patient today. Screening Tobacco Screening: Smoking Status: current every day smoker (09/23/2019) Tobacco Use: Currently (09/23/2019) Advised to Quit: Yes (09/23/2019)Labs/Meds/Other Counseling-Nutrition and Physical Activity:BMI Interpretation: Obese (09/23/2019) Counseling: Done (09/23/2019) Physical Activity: Done (09/23/2019)Review of Systems General: Denies loss of appetite, chills, dizziness, fatigue, fever, feeling ill. Cardiovascular: Denies chest pain, palpitations, feeling faint. Respiratory: Denies cough, difficulty breathing, shortness of breath. Gastrointestinal: Denies nausea, vomiting, diarrhea, constipation, pain or discomfort. Musculoskeletal: Complains of back pain, joint pain, muscle aches, stiffness. Denies joint swelling, recent injury. Neurologic: Denies weakness, numbness/tingling, feeling faint, paralysis on one side. denies loss of bowel or bladder controlPhysical ExamGeneral Appearance: well nourished, well hydrated, no acute distress, frequently changing positions in his chair while seatedEyes, External: conjunctivae and lids normal, EOMIRespiratory, Auscultation: clear to auscultation bilaterally; no rales, rhonchi, or wheezesRespiratory, Effort: no intercostal retractions or use of accessory musclesCardiovascular, Auscultation: S1, S2 audible; no murmur, rub, or gallop; RRRPeripheral Circulation: no clubbing, cyanosis, edema, or varicositiesAbdomen: soft, non-tender, no masses, bowel sounds normalGait & Station: normalBack: limited flexion, extension, and rotation due to guardingSkin, Inspection: no rashes, lesions, or ulcerationsOrientation: oriented to time, place, and personJudgment & Insight: intactCare Management Plan Transitions of CareInboundRate Your HealthIn general, would you say your health is? GoodAssessment & Plan Problems:Added: Radiculopathy, lumbar region (ICD-724.4) (QGM43-F58.16) Assessment: Pt agreed to urine drug screen today, periodic rescreening prior to refills. Pt verbalized understanding of the above, that this is temporary given current situation. Instructions: While we are waiting for more definite treatment, susana l continue ibuprofen, tizanidine, and percocet for severe pain. The medication you were prescribed today is a controlled substance. We have reviewed alternative treatment options and agree this is the most appropriate treatment at this time. We reviewed risks of taking this medication, including but not limited to: addiction, sedation, overdose. Taking more than prescribed or taking with another controlled substance can result in overdose or , no drinking alcohol, no driving/operating heavy machinery while taking this medication. Keep out of the reach of childrenRadiculopathy, cervical region (ICD-723.4) (ICD10- M54.12) Assessment: Instructions: Will order MRI to update and evaluate this further.Radiculopathy, lumbar region (ICD-724.4) (OMC91-S30.16) Assessment: Reviewed pain management note in detail today with patient.Patient Instructions/Care Plan: Radiculopathy- lumbar region: While we are waiting for more definite treatment, will continue ibuprofen, tizanidine, and percocet for severe pain. The medication you were prescribed today is a controlled substance. We have reviewed alternative treatment options and agree this is the most appropriate treatment at this time. We reviewed risks of taking this medication, including but not limited to: addiction, sedation, overdose. Taking more than prescribed or taking with another controlled substance can result in overdose or , no drinking alcohol, no driving/operating heavy machinery while taking this medication. Keep out of the reach of childrenRadiculopathy- cervical region: Will order MRI to update and evaluate this furth er. Plan developed in collaboration with patient and/or familyMedications:PERCOCET 5-325 MG ORAL TABLETIBUPROFEN 800 MG ORAL TABLETTIZANIDINE HCL 4 MG ORAL TABLETMedication Changes:New Prescrip tion:TIZANIDINE HCL 4 MG ORAL TABLET-Take 1 tablet po up to TID prn Qty: 90[Tablet] Refills: 1 Method: ElectronicIBUPROFEN 800 MG ORAL TABLET-Take 1 tablet po with food q 8 hrs prn Qty: 90[Tablet] Refills: 1 Method: ElectronicPERCOCET 5-325 MG ORAL TABLET-Take 1 tablet po q 8 hrs prn severe pain; MDD 3 tablets Qty: 42[Tablet] Refills: 0 Method: ElectronicRemoved:LEXAPRO 10 MG ORAL TABLET-1 po qday Qty: 30[Tablet] Refills: 5, OMEPRAZOLE 40 MG ORAL CAPSULE DELAYED RELEASE-1 po bid for 2 mos, then 1 po qhs for 4 mos prn GERD Qty: 60[Capsule] Refills: 5, COLACE 100 MG ORAL CAPSULE-1 po tid prn constipation Qty: 90[Capsule] Refills: 3, IBUPROFEN 800 MG ORAL TABLET-1 po tid with meals prn inflammation/ pain Qty: 90[Tablet] Refills: 3Allergies:No Known Allergies (updated 09/23/2019) Orders:MRI SPINAL CANAL CERVICAL W/O CONTRAST MATRL [CPT-02815] Adult - Ofc Vst, EST, Level III [CPT- 34206] Urine Drug Screen w/ Confirmation [CPT-57218] Follow-Up Return to clinic: in 2 weeks for follow upAdditional Follow-Up: pain follow-upClinical Visit Summary CompletedMedications:Cancelled IBUPROFEN 800 MG ORAL TABLET (IBUPROFEN) 1 po tid with meals prn inflammation/ pain #90[Tablet] x 3 Route:ORAL Entered and Authorized by: Ankit MCDONALD Method used: Electronically to [facility] (retail) [address] [place] [address] RxID: [id number] COLACE 100 MG ORAL CAPSULE (DOCUSATE SODIUM) 1 po tid prn constipation #90[Capsule] x 3 Route:ORAL Entered and Authorized by: Ankit MCDONALD Method used: Electronically to [facility] (retail) [address] [place] [address] RxID: [id number] OMEPRAZOLE 40 MG ORAL CAPSULE DELAYED RELEASE (OMEPRAZOLE) 1 po bid for 2 mos, then 1 po qhs for 4 mos prn GERD #60[Capsule] x 5 Route:ORAL Entered and Authorized by: Ankit MCDONALD Method used: Electronically to [facility] (retail) [address] [place] [address] RxID: [id number] LEXAPRO 10 MG ORAL TABLET (ESCITALOPRAM OXALATE) 1 po qday #30[Tablet] x 5 Route:ORAL Entered and Authorized by: Ankit Hartman Method used: Electronically to [facility] (retail) [address] [place] [address] RxID: [id number] 5-325 MG ORAL TABLET (OXYCODONE-ACETAMINOPHEN) Take 1 tablet po q 8 hrs prn severe pain; MDD 3 tablets #42[Tablet] x 0 Route:ORAL Entered and Authorized by: Ankit MCDONALD Method used: Electronically to [facility] (retail) [address] [place] [address] Note to Pharmacy: Route: ORAL; Indications: RADICULOPATHY, CERVICAL REGION;RADICULOPATHY, LUMBAR REGION RxID: [id number] 800 MG ORAL TABLET (IBUPROFEN) Take 1 tablet po with food q 8 hrs prn #90[Tablet] x 1 Route:ORAL Entered and A uthorized by: Ankit MCDONALD Method used: Electronically to [facility] (retail) [address] [place] [address] Note to Pharmacy: Route: ORAL; Indications: RADICULOPATHY, CERVICAL REGION;RADICULOPATHY, LUMBAR REGION RxID: [id number] HCL 4 MG ORAL TABLET (TIZANIDINE HCL) Take 1 tablet po up to TID prn #90[Tablet] x 1 Route:ORAL Entered and Authorized by: Ankit MCDONALD Method used: Electronically to [facility] (retail) [facility] [place] [address] Fax: Note to Pharmacy: Route: ORAL; Indications: RADICULOPATHY, CERVICAL REGION;RADICULOPATHY, LUMBAR REGION RxID: [id number] signed by Ankit MCDONALD on 10/03/2019 at 7:50 AM Name Value Range Interpretation Code Description Data Heidi rce(s) Supporting Document(s) ID Date Data Source [id number] 07/04/2019 03:16:38 PM [facility] Measurements & CalculationsHeight: 72 inches (6 ft. 0 in.) 182.88 cm Weight: 245 pounds 111.36 kg Body Mass Index (BMI): 33.35BMI Interpretation: ObeseBody Surface Area (BSA): 2.32Weight Management Education Done (Nutrition/Physical Activity)Vital SignsTemperature: 98.3F oral Pulse Rate: 103 beats/minuteRespiratory Rate: 17 respirations/minuteBlood Pressure: 138/88 right arm sitting automaticO2 Saturation: 97% room airVital Signs performed by: Renay Welch LPN, July 04, 2019 3:30 PMVital Signs performed by: Ankit MCDONALD, July 04, 2019 3:32 PMInitial Intake Information from: patientRoom #: 9Infectious Disease- Travel Have you or your sexual partner travelled outside of the country recently? NoSmoking, Tobacco or Smoke Exposure StatusSmoke Status: current every day smokerTobacco Use: YesAdv to Quit: YesPassive Smoke Exposure: YesHealthcare HistorySince your last office visit...Have you been admitted to the hospital? NoHave you been to an emergency room (ER) or urgent care clinic? NoHave you seen another healthcare provider? Yes - orthoHave you seen a dentist? NoIntake performed by: Renay Welch LPN, July 04, 2019 3:24 PMRate Your HealthIn general, would you say your health is? GoodPain AssessmentAre you currently having any pain which... You would like your provider to address? Yes Affects your activity level? YesDepression Screening - PHQ-2Over the last two weeks, have you... Had little interest or pleasure in doing things? Not at all Been feeling down, depressed, or hopeless? Not at all PHQ-2 Score: 0Anxiety Screening - DAVON-2Over the last two weeks, have you been... Feeling nervous, anxious, or on edge? Not at all Unable to stop or control worrying? Not at all DAVON-2 Score: 0Pain AssessmentPain ScaleNumeric Rating Scale: 9 / 10Location: back shoiulderDuration: chronicCharacter/Quality: aching, sharp and pressureIs the pain radiating? NoScreening, Brief Intervention, & Referral to Treatment (SBIRT)Pre-Screening Questions How many times have you have 5 or more drinks in a day? 0How many times have you used an illegal drug or used a prescription medication for a non-medical reason? 0Performed by: Renay Welch LPN, July 04, 2019 3:25 PMPatient History Medical History:No known medical historySurgical History:Rt hand repair.Family History:Diabetes (Mother)Heart disease (Mother)Social/Personal History: Smoking Status: current every day smokerAdvised to Quit/Tobacco Education: YesChief Complaintback painHistory of Present Illness (HPI)33 yo here for back and shoulder pain over the past few years. Visit translated with translation phone service.Pt states he is scheduled for ortho consult appointment in August 2019, with Lynda believes to be Dr. Tay. Pt states he would like either the hydrocodone increased or changed to Percocet like he used to get in [place]. Pt states he sent paperwork for Worker's Compensation but has not received a determination yet, sent it in about 1.5 months. When asked if he has documentation at home to review, he states he has hand written down what he can. He also stated today that "if I don't need surgery then I wouldn't be here." Darling Pineda called during this appointment to Dr. Tay's office in [place] and reports patient N/S two appointments (11/17 and 01/17) and cancelled another on 01/24. Patient's history is not consistent between this provider and nurse. HPI performed by: Ankti MCDONALD, July 04, 2019 3:43 PMTransitions of Care InboundProblem ReviewProblem List was reviewed and/or updated during this visit.Medication Reconciliation & ReviewMedication List was reviewed and/or updated during this visit, including review of any eqlx-kuf-pwwxiud medications, herbal therapies, and/or supplements.Allergy ReviewAllergy List was reviewed and/or updated during this visit. Patient has no known allergies.Adult Preventive CareProvider Calculated and Reviewed all Clinical Protocols for patient today. Screening Tobacco Screening: Smoking Status: current every day smoker (07/04/2019) Advised to Quit: Yes (07/04/2019)Labs/Meds/Other Counseling-Nutrition and Physical Activity:BMI Interpretation: Obese (07/04/2019) Counseling: Done (07/04/2019) Physical Activity: Done (07/04/2019)Review of Systems Musculoskeletal: Complains of back pain, muscle aches, stiffness. Denies recent injury. Neurologic: Denies weakness, numbness/tingling. denies loss of bowel or bladder controlPhysical ExamGeneral Appearance: well nourished, well hydrated, no acute distress, frequently changing positions in his chair while seatedNeck: FROMGait & Station: normalUpper Extremity, Right: FROM without apparent limitationUpper Extremity, Left: FROM without apparent limitationOrientation: oriented to time, place, and personMood & Affect: affect irritable, anxious and fidgiting throughout exam, frequently rubbing his forehead with his hand and speaking with hand gesturesJudgment & Insight: intactCare Management Plan Transitions of CareInboundRate Your HealthIn general, would you say your health is? GoodAssessment & Plan Problems:Assessed:Spinal stenosis of lumbar region (ICD-724.02) (YCS11-L32.061) Assessment: Instructions: We are unable to continue narcotic pain medication at this time. We require pain management be involved. Chronic oral narcotic prescriptions are not the appropriate course of action. Recommend anti-inflammatories (ibuprofen or naproxen), muscle relaxers, and tylenol.Pain in right shoulder (ICD-719.41) (GHZ46-E67.511) Assessment: Instructions: As above.Spinal stenosis of lumbar region (ICD-724.02) (BKD65-V50.061) Assessment: Time spent > 45 minutes coordinating care face to face with patient and with referral office. Pt was very irritable and began arguing and refusing medication if it wasn't the narcotics that he was requesting. Pt ultimately agreed to Zanaflex and Pain management referral but also stated he will go to the ER so they can help with his pain.Patient Instructions/Care Plan: Spinal stenosis of lumbar region: We are unable to continue narcotic pain medication at this time. We require pain management be involved. Chronic oral narcotic prescriptions are not the appropriate course of action. Recommend anti-inflammatories (ibuprofen or naproxen), muscle relaxers, and tylenol.Pain in right shoulder: As above.------- ---Plan developed in collaboration with patient and/or familyMedications:ZANAFLEX 4 MG ORAL CAPSULELEXAPRO 10 MG ORAL TABLETOMEPRAZOLE 40 MG ORAL CAPSULE DELAYED RELEASECOLACE 100 MG ORAL CAPSULEIBUPROFEN 800 MG ORAL TABLETMedication Changes:New Prescription:ZANAFLEX 4 MG ORAL CAPSULE-Take 1 tablet by mouth every 8 hours Qty: 21[Capsule] Refills: 2 Method: ElectronicRemoved:HYDROCODONE-ACETAMINOPHEN 5-325 MG ORAL TABLET-1 po 1 4-6 hours prn severe pain; MDD 3, HYDROCODONE-ACETAMINOPHEN 5-325 MG ORAL TABLET-1 po 1 4-6 hours prn severe pain; MDD 4 This is for chronic pain Qty: 120[Tablet] Refills: 0, CYCLOBENZAPRINE HCL 10 MG ORAL TABLET-1 po tid prn spasms Qty: 90[Tablet] Refills: 3, METHOCARBAMOL 500 MG ORAL TABLET-1 po tid prn Qty: 90[Tablet] Refills: 3, ROBAXIN 500 MG ORAL TABLET-1 po tid prn spasms Qty: 90[Tablet] Refills: 3, IBUPROFEN 600 MG ORAL TABLET-1 po tid with meals Qty: 90[Tablet] Refills: 3, COLACE 100 MG ORAL CAPSULE-1 po bid Qty: 90[Capsule] Refills: 3Allergies:No Known Allergies (updated 07/04/2019) Orders:Adult - Ofc Vst, EST, Level III [CPT-71057] Pain Management Consult [CPT-65108] Follow-Up Return to clinic: as needed for follow upClinical Visit Summary DeclinedMedicat ions:ZANAFLEX 4 MG ORAL CAPSULE (TIZANIDINE HCL) Take 1 tablet by mouth every 8 hours #21[Capsule] x 2 Route:ORAL Entered and Authorized by: Ankit MCDONALD Method used: Electronically to [facility] (retail) [address] [place] [address] Note to Pharmacy: Route: ORAL; Indications: SPINAL STENOSIS OF LUMBAR REGION RxID: [id number] COLACE 100 MG ORAL CAPSULE (DOCUSATE SODIUM) 1 po bid #90[Capsule] x 3 Route:ORAL Entered by: Ankit MCDONALD Authorized by: Klarissa Landaverde MD Method used: Electronically to [facility] (retail) [address] [place] [address] Fax: RxID: [id number] IBUPROFEN 600 MG ORAL TABLET (IBUPROFEN) 1 po tid with meals #90[Tablet] x 3 Route:ORAL Entered by: Ankit MCDONALD Authorized by: Klarissa Landaverde MD Method used: Electronically to [facility] (retail) [address] [place] [address] Fax: RxID: [id number] ROBAXIN 500 MG ORAL TABLET (METHOCARBAMOL) 1 po tid prn spasms #90[Tablet] x 3 Route:ORAL Entered by: Ankit MCDONALD Authorized by: Klarissa Landaverde MD Method used: Electronically to [facility] (retail) [address] [place] [address] Fax: RxID: [id number] METHOCARBAMOL 500 MG ORAL TABLET (METHOCARBAMOL) 1 po tid prn #90[Tablet] x 3 Route:ORAL Entered by: Ankit MCDONALD Authorized by: Klarissa Landaverde MD Method used: Electronically to [facility] (retail) [address] [place] [address] Fax: RxID: [id number] CYCLOBENZAPRINE HCL 10 MG ORAL TABLET (CYCLOBENZAPRINE HCL) 1 po tid prn spasms #90[Tablet] x 3 Route:ORAL Entered by: Ankit MCDONALD Authorized by: Klarissa Landaverde MD Method used: Electronically to [facility] (retail) [address] [place] [address] Fax: RxID: [id number] HYDROCODONE-ACETAMINOPHEN 5-325 MG ORAL TABLET (HYDROCODONE-ACETAMINOPHEN) 1 po 1 4-6 hours prn severe pain; MDD 4 This is for chronic pain #120[Tablet] x 0 Route:ORAL Entered by: Ankit MCDONALD Authorized by: Klarissa Landaverde MD Method used: Electronically to [facility] (retail) [address] [place] [address] RxID: [id number] signed by Ankit MCDONALD on 07/08/2019 at 8:21 A M Name Value Range Interpretation Code Description Data Heidi rce(s) Supporting Document(s) ID Date Data Source [id number] 05/20/2019 02:11:39 PM [facility] Measurements & CalculationsHeight: 72 inches (6 ft. 0 in.) 182.88 cm Weight: 255.6 pounds 116.18 kg Body Mass Index (BMI): 34.79BMI Interpretation: ObeseBody Surface Area (BSA): 2.37Weight Management Education Done (Nutrition/Physical Activity)Vital SignsTemperature: 98.3F oral Pulse Rate: 72 beats/minuteRespirat ory Rate: 17 respirations/minuteBlood Pressure: 122/75 left arm sitting automaticO2 Saturation: 98% room airVital Signs performed by: Renay Welch LPN, May 20, 2019 2:18 PMInitial Intake Information from: patientRoom #: 14Infectious Disease- Travel Have you or your sexual partner travelled outside of the country recently? YesHave you or are you currently experiencing flu-like symptoms such as fever, weakness, joint pain, suspicious rash or conjunctivitis (red eyes)? NoSmoking, Tobacco or Smoke Exposure StatusSmoke Status: current every day smokerTobacco Use: YesAdv to Quit: YesPassive Smoke Exposure: YesHealthcare HistorySince your last office visit...Have you been admitted to the hospital? NoHave you been to an emergency room (ER) or urgent care clinic? NoHave you seen another healthcare provider? Yes - orthoHave you seen a dentist? NoIntake performed by: Renay Welch LPN, May 20, 2019 2:14 PMRate Your HealthIn general, would you say your health is? GoodPain AssessmentAre you currently having any pain which... You would like your provider to address? Yes Affects your activity level? NoDepression Screening - PHQ-2Over the last two weeks, have you... Had little interest or pleasure in doing things? Not at all Been feeling down, depressed, or hopeless? Not at all PHQ-2 Score: 0Anxiety Screening - DAVON-2Over the last two weeks, have you been... Feeling nervous, anxious, or on edge? Not at all Unable to stop or control worrying? Not at all DAVON-2 Score: 0Pain AssessmentPain ScaleNumeric Rating Scale: 9 / 10Location: back shoulderDuration: chronicCharacter/Quality: aching, sharp and pressureScreening, Brief Intervention, & Referral to Treatment (SBIRT)Pre-Screening Questions How many times have you have 5 or more drinks in a day? 0How many times have you used an illegal drug or used a prescription medication for a non-medical reason? 0Performed by: Renay Welch LPN, May 20, 2019 2:14 PMPatient History Medical History:No known medical historySurgical History:Rt hand repair.Family History:Diabetes (Mother)Heart disease (Mother)Social/Personal History: Smoking Status: current every day smokerAdvised to Quit/Tobacco Education: YesChief Complaintfollow-up visit back and shoulder painHistory of Present Illness (HPI)33 yo male here for f/u for back and shoulder pain., 8/10 in severity, worse with movmeent, better with rest, non- radiating not asocieated with weaknees, bowel, bladder incont, saddle paresthesias- plan is upcoming shoulder surgery..Transitions of Care InboundProblem ReviewProblem List was reviewed and /or updated during this visit.Medication Reconciliation & ReviewMedication List was reviewed and/or updated during this visit, including review of any cfug-fxa-zuyrsia medications, herbal therapies, and/or supplements.Allergy ReviewAllergy List was reviewed and/or updated during this visit.Adult Preventive CareProvider Calculated and Reviewed all Clinical Protocols for patient today. Screening Tobacco Screening: Smoking Status: current every day smoker (05/20/2019) Advised to Quit: Yes (05/20/2019)Labs/Meds/Other Counseling-Nutrition and Physical Activity:BMI Interpretation: Obese (05/20/2019 ) Counseling: Done (05/20/2019) Physical Activity: Done (05/20/2019)Review of Systems General: GEN: No night sweats, weight loss, fevers, chillsEyes: No vision changesEars: No hearing lossNose: No sinus painThroat: No sore throatResp: No sob, wheezingCV: No chest painGI: No abdominal painGU: No dysuria, urinary frequencyMusculoskeletal: + myalgias, arthralgiasNeuro: No BLACK, unilateral paresthesias, weaknessLympatics: No Lymph node swellingEndocrine: No polydipsia, polyuriaPhysical ExamGeneral Appearance: well nourished, well hydrated, no acute distressEyes, External: conjunctivae and l ids normal, EOMIExternal Ears: normal, no lesions or deformitiesHearing: grossly intactOtoscopy: canals clear, tympanic membranes intact, no fluid, light reflex intact bilaterallyExternal Nose: normal, no lesions or deformitiesNasal: mucosa, septum, and turbinates normal, nares patentLips/Teeth/Gums: normal dentition, no gingival inflammation, no labial lesionsPharynx: tongue normal, posterior pharynx without erythema or exudate, no thrush/aphthous ulcerRespiratory, Auscultation: clear to auscultation bilaterally; no rales, rhonchi, or wheezesRespiratory, Effort: no intercostal retractions or use of accessory musclesCardiovascular, Auscultation: S1, S2 audible; no murmur, rub, or gallop; RRRPeripheral Circulation: no clubbing, cyanosis, edema, or varicositiesAbdomen: soft, non-tender, no masses, bowel sounds normalGait & Station: normalHead & Neck: Spinous processes NTTP. + paralcervical spasms FROM with pain. MNVI. negative to 45 degrees. Gait intactBack: Spinous processes NTTP. + paralumbar spasms FROM with pain. MNVI. SLR positive to 30 degrees. Gait intactUpper Extremity, Right: R Shoulder exam: Axillary nerve intact. FROM with pain, MNVI. Drop test positive. + pain with IR/ ER; + pain with empty beer can sign. Biceps/ Tricepts intact. Upper Extremity, Left: L Shoulder exam: Axillary nerve intact. FROM with pain, MNVI. Drop test positive. + pain with IR/ ER; + pain with empty beer can sign. Biceps/ Tricepts intact. Skin, Inspection: no rashes, lesions, or ulcerationsOrientation: oriented to time, place, and personMood & Affect: no depression, anxiety, or agitationJudgment & Insight: intactCare Management Plan Transitions of CareInboundRate Your HealthIn general, would you say your health is? GoodAssessment & Plan Problems:Assessed:Pain in right shoulder (ICD-719.41) (LZL97-P47.511) Assessment: Instructions: Counseled patient on all diagnoses/ treatments. Return to clinic/ ER for any worsening symptoms or concernsplan per OrthoPain in left shoulder (ICD-719.41) (AGT58-I97.512) Assessment: Instructions: Counseled patient on all diagnoses/ treatments. Return to clinic/ ER for any worsening symptoms or concernsplan per OrthoSpinal stenosis of lumbar region (ICD-724.02) (UJN45-N38.061) Assessment: Instructions: Counseled patient on all diagnoses/ treatments. Return to clinic/ ER for any worsening symptoms or concernsNeck pain (ICD-723.1) (TON20-N86.2) Assessment: Instructions: Counseled patient on all diagnoses/ treatments. Return to clinic/ ER for any worsening symptoms or concernsPatient Instructions/Care Plan: Pain in right shoulder: Counseled patient on all diagnoses/ treatments. Return to clinic/ ER for any worsening symptoms or concernsplan per OrthoPain in left shoulder: Counseled patient on all diagnoses/ treatments. Return to clinic/ ER for any worsening symptoms or concernsplan per OrthoSpinal stenosis of lumbar region: Counseled patient on all diagnoses/ treatments. Return to clinic/ ER for any worsening symptoms or concernsNeck pain: Counseled patient on all diagnoses/ treatments. Return to clinic/ ER for any worsening symptoms or concerns Plan developed in collaboration with patient and/or familyMedications:LEXAPRO 10 MG ORAL TABLETOMEPRAZOLE 40 MG ORAL CAPSULE DELAYED RELEASECYCLOBENZAPRINE HCL 10 MG ORAL TABLETHYDROCODONE- ACETAMINOPHEN 5-325 MG ORAL TABLETCOLACE 100 MG ORAL CAPSULEIBUPROFEN 600 MG ORAL TABLETROBAXIN 500 MG ORAL TABLETHYDROCODONE-ACETAMINOPHEN 5-325 MG ORAL TABLETCOLACE 100 MG ORAL CAPSULEMETHOCARBAMOL 500 MG ORAL TABLETIBUPROFEN 800 MG ORAL TABLETMedication Changes:Refilled:HYDROCODONE-ACETAMINOPHEN 5-325 MG ORAL TABLET-1 po 1 4-6 hours prn severe pain; MDD 4 This is for chronic pain Qty: 120[Tablet] Refills: 0 Method: ElectronicIBUPROFEN 800 MG ORAL TABLET-1 po tid with meals prn inflammation/ pain Qty: 90[Tablet] Refills: 3 Method: ElectronicCOLACE 100 MG ORAL CAPSULE-1 po bid Qty: 90[Capsule] Refills: 3 Method: ElectronicNew Prescription:CYCLOBENZAPRINE HCL 10 MG ORAL TABLET-1 po tid prn spasms Qty: 90[Tablet] Refills: 3 Method: ElectronicOMEPRAZOLE 40 MG ORAL CAPSULE DELAYED RELEASE-1 po bid for 2 mos, then 1 po qhs for 4 mos prn G ERD Qty: 60[Capsule] Refills: 5 Method: ElectronicLEXAPRO 10 MG ORAL TABLET- 1 po qday Qty: 30[Tablet] Refills: 5 Method: ElectronicAllergies:No Known Allergies (updated 08/13/2018) Orders:Adult - Ofc Vst, EST, Level IV [CPT-33428] Follow-Up Return to clinic: in 60 days for f/uAdditional Follow-Up: Counseled patient on all diagnoses/ treatments. Return to clinic/ ER for any worsening symptoms or concernsClinical Visit Summary Declined Name Value Range Interpretation Code Description Data Heidi rce(s) Supporting Document(s) Procedure Social History Code Duration Value Status Description Data Source(s ) Smoking 06/04/2020 12:00:00 AM EST Current Smoker completed Curre nt Smoker eCW1 ([facility]) Smoking 05/11/2020 12:00:00 AM EST Current Smoker completed Curre nt Smoker eCW1 ([facility]) Smoking 05/02/2020 12:00:00 AM EST Current Smoker completed Curre nt Smoker eCW1 ([facility]) Smoking 05/02/2020 12:00:00 AM EST Current Smoker completed Curre nt Smoker eCW1 ([facility]) Smoking 04/06/2020 12:00:00 AM EST Current Smoker completed Curre nt Smoker eCW1 ([facility]) Smoking 04/06/2020 12:00:00 AM EST Current Smoker completed Curre nt Smoker eCW1 ([facility]) Vital Signs ID Date Data Source UNK Name Value Range Interpretation Code Description Data Source(s) Diastolic blood pressure 93 mm[Hg] 93 mm[Hg] eCW1 ([facility]) Systolic blood pressure 156 mm[Hg] 156 mm[Hg] e CW1 ([facility]) Body temperature 95.6 [degF] 95.6 [degF] eCW1 ( [facility]) Respiratory rate 18 /min 18 /min eCW1 (Count includes the [facility]) Heart rate 102 /min 102 /min eCW1 ([facility]) Body mass index (BMI) [Ratio] 37.10 kg/m2 37.10 kg/m2 W1 ([facility]) Body height 70 [in_i] 70 [in_i] W1 ([facility]) Body weight 258.6 [lb_av] 258.6 [lb_av] eCW1 ([facility]) Diastolic blood pressure 97 mm[Hg] 97 mm[Hg] eCW1 ([facility]) Systolic blood pressure 153 mm[Hg] 153 mm[Hg] e CW1 ([facility]) Body temperature 98.2 [degF] 98.2 [degF] eCW1 ( [facility]) Respiratory rate 18 /min 18 /min eCW1 (Count includes the [facility]) Heart rate 83 /min 83 /min eCW1 ([facility]) Body mass index (BMI) [Ratio] 37.27 kg/m2 37.27 kg/m2 W1 ([facility]) Body height 70 [in_i] 70 [in_i] eCW1 ([facility]) Body weight 259.8 [lb_av] 259.8 [lb_av] eCW1 ([facility]) Body surface area Derived from formula 2.39 m2 2.39 m2 [facility] Body weight 119.070 kg 119.070 kg [facility] ([facility]) [place] body weight 178 [lb_av] 178 [lb_av] MEDEN T ([facility]) Body mass index (BMI) [Ratio] 35.6 kg/m2 35.6 k g/m2 [facility] ([facility]) Body weight 262.50 [lb_av] 262.50 [lb_av] MEDEN T ([facility]) Body height 72 [in_i] 72 [in_i] [facility] 6'0" Diastolic blood pressure 94 mm[Hg] 94 mm[Hg] [facility] Systolic blood pressure 153 mm[Hg] 153 mm[Hg] M EDENT ([facility]) Diastolic blood pressure 87 mm[Hg] 87 mm[Hg] eCW1 ([facility]) Systolic blood pressure 144 mm[Hg] 144 mm[Hg] e CW1 ([facility]) Body temperature 95.4 [degF] 95.4 [degF] eCW1 ( [facility]) Respiratory rate 18 /min 18 /min eCW1 (Count includes the [facility]) Heart rate 77 /min 77 /min eCW1 ([facility]) Body mass index (BMI) [Ratio] 38.16 kg/m2 38.16 kg/m2 W1 ([facility]) Body height 70 [in_i] 70 [in_i] eCW1 ([facility]) Body weight 266 [lb_av] 266 [lb_av] eCW1 ([facility]) Diastolic blood pressure 86 mm[Hg] 86 mm[Hg] eCW1 ([facility]) Systolic blood pressure 155 mm[Hg] 155 mm[Hg] e CW1 ([facility]) Body temperature 98.0 [degF] 98.0 [degF] eCW1 ( [facility]) Respiratory rate 18 /min 18 /min eCW1 (Count includes the [facility]) Heart rate 77 /min 77 /min eCW1 ([facility]) Body mass index (BMI) [Ratio] 38.16 kg/m2 38.16 kg/m2 eCW1 ([facility]) Body height 70 [in_i] 70 [in_i] eCW1 ([facility]) Body weight 266 [lb_av] 266 [lb_av] eCW1 ([facility]) Body weight 4224 [oz_av] 4224 [oz_av] HARPREET ([facility]) Systolic blood pressure 130 mm[Hg] 130 mm[Hg] A THENA ([facility]) Systolic blood pressure 156 mm[Hg] 156 mm[Hg] A THENA ([facility]) Body mass index (BMI) [Ratio] 35.8 kg/m2 35.8 k g/m2 HARPREET ([facility]) Body height 72 [in_i] 72 [in_i] HARPREET ([facility]) Diastolic blood pressure 94 mm[Hg] 94 mm[Hg] HARPREET ([facility]) Diastolic blood pressure 95 mm[Hg] 95 mm[Hg] HARPREET ([facility]) Diastolic blood pressure 89 mm[Hg] 89 mm[Hg] eCW1 ([facility]) Systolic blood pressure 155 mm[Hg] 155 mm[Hg] e CW1 ([facility]) Body temperature 97.1 [degF] 97.1 [degF] eCW1 ( [facility]) Respiratory rate 18 /min 18 /min eCW1 (Count includes the [facility]) Heart rate 96 /min 96 /min eCW1 ([facility]) Body mass index (BMI) [Ratio] 37.42 kg/m2 37.42 kg/m2 eCW1 ([facility]) Body height 70 [in_i] 70 [in_i] eCW1 ([facility]) Body weight 260.8 [lb_av] 260.8 [lb_av] eCW1 ([facility]) Body mass index (BMI) [Ratio] 33.2 kg/m2 33.2 k g/m2 MEDENT ([facility]) Body weight 245.00 [lb_av] 245.00 [lb_av] MEDEN T ([facility]) Body height 72 [in_i] 72 [in_i] MEDENT ([facility]) 6'0" Body temperature 96.0 [degF] 96.0 [degF] MEDENT ([facility]) Body weight 4169.6 [oz_av] 4169.6 [oz_av] ATHEN A ([facility]) Systolic blood pressure 156 mm[Hg] 156 mm[Hg] A [facility] ([facility]) Body height 72 [in_i] 72 [in_i] HARPREET ([facility]) Diastolic blood pressure 100 mm[Hg] 100 mm[Hg] HARPREET ([facility]) Body weight 4278.08 [oz_av] 4278.08 [oz_av] ATH RONNI ([facility]) Systolic blood pressure 152 mm[Hg] 152 mm[Hg] [facility] Body height 72 [in_i] 72 [in_i] HARPREET ([facility]) Diastolic blood pressure 92 mm[Hg] 92 mm[Hg] HARPREET ([facility]) Body weight 4192 [oz_av] 4192 [oz_av] HARPREET ([facility]) Systolic blood pressure 139 mm[Hg] 139 mm[Hg] A THENA ([facility]) Body height 72 [in_i] 72 [in_i] HARPREET ([facility]) Diastolic blood pressure 87 mm[Hg] 87 mm[Hg] HARPREET ([facility]) Body weight 4256 [oz_av] 4256 [oz_av] HRAPREET ([facility]) Systolic blood pressure 157 mm[Hg] 157 mm[Hg] A THENA ([facility]) Systolic blood pressure 164 mm[Hg] 164 mm[Hg] A THENA ([facility]) Body height 72 [in_i] 72 [in_i] HARPREET ([facility]) Diastolic blood pressure 109 mm[Hg] 109 mm[Hg] HARPREET ([facility]) Diastolic blood pressure 109 mm[Hg] 109 mm[Hg] HARPREET ([facility]) Body weight 4230.4 [oz_av] 4230.4 [oz_av] ATHEN A ([facility]) Systolic blood pressure 131 mm[Hg] 131 mm[Hg] A THENA ([facility]) Body height 72 [in_i] 72 [in_i] HARPREET ([facility]) Diastolic blood pressure 89 mm[Hg] 89 mm[Hg] HARPREET ([facility]) Body weight 4278.08 [oz_av] 4278.08 [oz_av] ATH RONNI ([facility]) Systolic blood pressure 136 mm[Hg] 136 mm[Hg] A THENA ([facility]) Body height 72 [in_i] 72 [in_i] HARPREET ([facility]) Diastolic blood pressure 88 mm[Hg] 88 mm[Hg] HARPREET ([facility]) Body weight 245 [lb_av] 245 [lb_av] HARPREET ([facility]) Systolic blood pressure 132 mm[Hg] 132 mm[Hg] A THENA ([facility]) Body mass index (BMI) [Ratio] 33.2 kg/m2 33.2 k g/m2 HARPREET ([facility]) Body height 72 [in_i] 72 [in_i] HARPREET ([facility]) Diastolic blood pressure 78 mm[Hg] 78 mm[Hg] HARPREET ([facility]) Body mass index (BMI) [Ratio] 33.0 kg/m2 33.0 k g/m2 MEDENT ([facility]) Body weight 247.38 [lb_av] 247.38 [lb_av] MEDEN T ([facility]) Body weight 3920 [oz_av] 3920 [oz_av] HARPREET ([facility]) Systolic blood pressure 138 mm[Hg] 138 mm[Hg] A THENA ([facility]) Body height 72 [in_i] 72 [in_i] HARPREET ([facility]) Diastolic blood pressure 88 mm[Hg] 88 mm[Hg] HARPREET ([facility]) Body weight 4089.6 [oz_av] 4089.6 [oz_av] ATHEN A ([facility]) Systolic blood pressure 122 mm[Hg] 122 mm[Hg] A THENA ([facility]) Body height 72 [in_i] 72 [in_i] HARPREET ([facility]) Diastolic blood pressure 75 mm[Hg] 75 mm[Hg] HARPREET ([facility]) Patient Treatment Plan of Care Planned Activity Planned Date Details Description Data Source (s) Acetaminophen 325 MG / Oxycodone Hydrochloride 5 MG Or al Tablet [Percocet] 06/04/2020 12:00:00 AM EST eCW1 ([facility]) pregabalin 75 MG Oral Capsule [Lyrica] 05/11/2020 12:00:00 AM EST eCW1 ([facility]) pregabalin 75 MG Oral Capsule [Lyrica] 05/11/2020 12:00:00 AM EST eCW1 ([facility]) Acetaminophen 325 MG / Oxycodone Hydrochloride 5 MG Or al Tablet [Percocet] 05/11/2020 12:00:00 AM EST eCW1 ([facility])
[2020-06-12] MEDS ORDERED: fentaNYL 250 MCG/5 ML INJECTION (J3010) As Ordered ONE (08:49)
[2020-06-12] MEDS ORDERED: ONDANSETRON 4MG/2ML VIAL As Ordered ONE (08:49)
[2020-06-12] MEDS ORDERED: MIDAZOLAM INJ 2MG/2ML VIAL (J2250 PER 1MG) As Ordered ONE (08:49)
[2020-06-12] MEDS ORDERED: PHENYLephrine 500MCG 5ML (100MCG/ML) SYRINGE As Ordered ONE (08:50)
[2020-06-12] MEDS ORDERED: ACETAMINOPHEN 1000MG 100ML IV BTL (OFIRMEV) (J0131 PER 10MG) As Ordered ONE (08:50)
[2020-06-12] MEDS ORDERED: LIDOCAINE 2% 100MG/5ML SDV (FOR ANES.) As Ordered ONE (08:50)
[2020-06-12] MEDS ORDERED: ROCURONIUM BROMIDE 50 MG/5 ML VIAL As Ordered ONE (08:50)
[2020-06-12] MEDS ORDERED: dexameTHASONE 4 MG/ML 1ML VIAL (J1100 PER 1MG) As Ordered ONE (08:50)
[2020-06-12] MEDS ORDERED: ePHEDrine SULFATE 25 MG/5 ML(5MG/ML) SYRINGE As Ordered ONE (08:50)
[2020-06-12] MEDS ORDERED: SUGAMMADEX SODIUM 500 MG/5 ML VIAL (BRIDION) As Ordered ONE (08:50)
[2020-06-12] MEDS ORDERED: propofoL 200 MG/20 ML VIAL As Ordered ONE (08:50)
[2020-06-12] MEDS ORDERED: BUPIVACAINE HCL 0.25% 10ML VIAL As Ordered ONE (09:26)
[2020-06-12] MEDS ORDERED: BUPIVACAINE/EPIN 0.25% 30 ML VIAL As Ordered ONE (09:26)
[2020-06-12] MEDS ORDERED: BUPIVACAINE LIPOSOME/PF 1.3% 20ML VIAL (13.3MG/ML)(EXPAREL)(C9290 PER1MG) As Ordered ONE (09:26)
[2020-06-12] MEDS ORDERED: fentaNYL 100 MCG/2 ML INJECTION (J3010) As Ordered ONE (10:59)
[2020-06-12] MEDS ORDERED: PERCOCET 5MG/325MG TAB As Ordered ONE (10:59)
[2020-06-12] MEDS ORDERED: MORPHINE 2 MG/ML 1ML VIAL (J2270) IV PRN (11:00)
[2020-06-12] MEDS ORDERED: LR 1,000 ML IV SCH (11:00)
[2020-06-12] MEDS ORDERED: fentaNYL 100 MCG/2 ML INJECTION (J3010) IV PRN (11:00)
[2020-06-12] MEDS ORDERED: METOCLOPRAMIDE INJ 10MG/2ML VIAL (J2765 PER 1) IV PRN (11:00)
[2020-06-12] MEDS ORDERED: PERCOCET 5MG/325MG TAB PO PRN (11:00)
[2020-06-12] MEDS ORDERED: ONDANSETRON 4MG/2ML VIAL IV PRN (11:00)
[2020-06-12] MEDS ORDERED: NS 1,000 ML IV SCH (11:00)
--- NOTE | 2020-06-12 11:18 | RO ---
OPERATIVE NOTE DATE OF OPERATION: 06/12/2020 PREOPERATIVE DIAGNOSIS: Umbilical hernia. POSTOPERATIVE DIAGNOSIS: Umbilical hernia. PROCEDURE: Umbilical hernia repair. SURGEON: Carl Riley MD ANESTHESIA: General endotracheal. EBL: Minimal. FLUIDS: Crystalloid. BRIEF PROCEDURE SUMMARY: The patient was brought to the operating room , was given general anesthesia. After adequate anesthesia and preoperative antibiotics were given the patient was prepped and draped in usual sterile fashion. A supraumbilical incision was made with skin knife, blunt dissection was carried down to fascia and hernia sac was dissected out circumferentially using blunt dissection as well as electrocautery. Once this was dissected off the umbilicus the hernia sac was transected at the level of the fascia. There was some preperitoneal fat that was coming through the defect that was also mobilized and brought into the wound itself and then was transected at its base after ligating it. The peritoneum posterior to the hernia itself was quite lobulated and fat in this area and given its presentation I felt that ventral patch would not lie flat in this area very well. The fascia itself was relatively strong and I felt that a primary repair would be his best option at this time. Thus, [id number] #0 Ethibond was used to close the fascial defect and the dermis was brought together with 4-0 Vicryl and 4-0 Vicryl was used to approximate the skin. Steri-Strips and dry, sterile dressing was applied. The patient was awakened, extubated and brought to recovery room awake, alert and hemodynamically stable. Sponge and needle counts correct x2.
[2020-06-12] MEDS ORDERED: NORCO, ANEXSIA 5/325MG TABLET (HYDROcodone/ACETAMINOPHEN) PO PRN (12:00)
[2020-06-12 12:38] VITALS: BP 131/73
== END 2020-06-12 12:55 | disposition home or self-care (01) ==
LOC: M SDC 08:11
PROVIDERS: ATTEND Surgery
DX: K42.9 Umbilical hernia without obstruction or gangrene (principal); F17.218 Nicotine dependence, cigarettes, with other nicotine-induced disorders; Z79.899 Other long term (current) drug therapy
CPT/HCPCS: 49585; 88302; C9290; J0131; J0690; J1100; J2250; J2370; J2405; J3010

== ENCOUNTER 2020-08-24 04:39 | Emergency (ER) | payer OTHER ==
[~2020-08-24] VITALS: Ht 185.4 cm; Wt 120.2 kg
[~2020-08-24 04:39] MED LIST changes: -LIDOCAINE 1% MDV 20ML VIAL SQ PRN; -LR 1,000 ML IV ONE; +METH-1164; -METH1TAB40; -ceFAZolin SOD 2 GM in IV 1 EA IV ONE
[2020-08-24] MEDS ORDERED: NS 1,000 ML IV ONE (06:15)
[2020-08-24] MEDS ORDERED: ONDANSETRON 4MG/2ML VIAL IV ONE (06:15)
[2020-08-24] MEDS ORDERED: PANTOPRAZOLE 40MG VIAL (C9113 PER 1) IV ONE (06:15)
[2020-08-24] MEDS ORDERED: ACETAMINOPHEN 500 MG TAB PO ONE (06:15)
[2020-08-24 06:37] LABS: BASO # 0.1 10^3/uL (0.0-0.2); BASO % 0.5 % (0.0-1.0); EOS # 0.2 10^3/uL (0.0-0.5); EOS % 1.7 % (0.0-3.0); HEMATOCRIT 49.3 % (42.0-52.0); HEMOGLOBIN 16.6 g/dl (13.5-17.5); LYMPH # 2.4 10^3/uL (1.5-5.0); MEAN CORPUSCULAR HEMOGLOBIN 31.6 pg (27.0-33.0); MEAN CORPUSCULAR HGB CONC 33.7 g/dl (32.0-36.5); MEAN CORPUSCULAR VOLUME 93.7 fl (80.0-96.0); MONO % 7.4 % (2.0-8.0); NEUTROPHILS # 9.1 10^3/uL (1.5-8.5); NEUTROPHILS % 70.5 % (36.0-66.0); PLATELET COUNT, AUTOMATED 322 10^3/uL (150-450); RED BLOOD COUNT 5.26 10^6/uL (4.30-6.10); WHITE BLOOD COUNT 12.9 10^3/uL (4.0-10.0)
[2020-08-24 07:01] LABS: ALBUMIN 3.7 GM/DL (3.2-5.2); ALT/SGPT 32 U/L (12-78); BILIRUBIN,DIRECT < 0.1 MG/DL (0.0-0.2); BILIRUBIN,TOTAL 0.2 MG/DL (0.2-1.0); BLOOD UREA NITROGEN 16 MG/DL (7-18); CALCIUM LEVEL 8.9 MG/DL (8.5-10.1); CARBON DIOXIDE LEVEL 30 MEQ/L (21-32); CHLORIDE LEVEL 106 MEQ/L (98-107); CREATININE FOR GFR 0.95 MG/DL (0.70-1.30); GLOMERULAR FILTRATION RATE > 60.0 (>60); GLUCOSE, FASTING 98 MG/DL (70-100); LIPASE 95 U/L (73-393); POTASSIUM SERUM 4.4 MEQ/L (3.5-5.1); SODIUM LEVEL 139 MEQ/L (136-145); TOTAL PROTEIN 6.9 GM/DL (6.4-8.2)
[2020-08-24 07:03] LABS: AMYLASE 52 U/L (25-115); CPK CREATINE PHOSPHOKINASE 170 U/L (39-308); MB/CK RELATIVE INDEX 1.18 (< OR =4); TROPONIN I < 0.02 NG/ML (< 0.10)
[2020-08-24] MEDS ORDERED: KETOROLAC 30 MG/ML 1ML VIAL IV ONE (07:15)
--- NOTE | 2020-08-24 07:15 | REPVR ---
PROCEDURE INFORMATION: Exam: XR Complete Acute Abdomen Series Exam date and time: 08/24/2020 6:39 AM Age: 35 years old Clinical indication: Other: Abdominal pain TECHNIQUE: Imaging protocol: XR complete acute abdomen series, including 2 or more views of the abdomen and a single view chest. COMPARISON: CR Chest, 2 view PA, Lat 07/05/2019 5:55 PM FINDINGS: Lungs: Normal. No consolidation. Pleural spaces: Normal. No pleural effusions. No pneumothorax. Heart/Mediastinum: Normal. No cardiomegaly. Gastrointestinal tract: There is moderate stool burden in the transverse colon particularly the proximal half. No bowel dilation. Intraperitoneal space: There is well demarcation of the solid organs. No free air. Bones/joints: Normal. No acute fracture. Soft tissues: Normal. IMPRESSION: No radiographic evidence of bowel obstruction. Moderate transverse colonic stool burden. Well demarcation of the solid organs is likely due to over penetration however anterior free peritoneal air cannot be completely excluded. Correlate with clinical history and symptoms. Right and left lateral decubitus x-rays may be obtained if clinically indicated. Electronically signed by: Demar Alvarez On 08/24/2020 07:15:09 AM
[2020-08-24] MEDS ORDERED: ISOVUE-370 76% 100ML VIAL As Ordered ONE ×2 (07:38→08:20)
--- NOTE | 2020-08-24 07:52 | ECGEPIP ---
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
--- NOTE | 2020-08-24 09:23 | REP ---
INDICATION: mid abd pain, r/o perf COMPARISON: None. TECHNIQUE: CT Scan of the abdomen and pelvis was performed with intravenous administration of 100 cc of Isovue 370, and oral contrast. FINDINGS: Lung bases: Unremarkable. Liver: Normal Gallbladder: Unremarkable. Spleen: Normal. Adrenals: Normal. Pancreas: Normal. Kidneys: Normal. Small and large bowel: There is segmental mild wall thickening of the distal ileum with mild dilatation of these small bowel loops. There is inflammatory stranding of the surrounding mesenteric fat. There is no free air. There is no evidence for bowel obstruction. Free fluid: There is trace free fluid in the pelvis. Abdominal aorta: No aneurysm or dissection. Adenopathy: None. Appendix: Not inflamed. Osseous structures: Unremarkable. Pelvis: No mass. IMPRESSION: There is segmental mild wall thickening of a few loops of distal ileum with mild dilatation of these small bowel loops. There is inflammatory stranding of the surrounding mesenteric fat. There is no free air. There is no evidence for bowel obstruction. The findings suggest inflammatory bowel disease, possibly Crohn's disease. <Electronically signed by Jason Rodriguez > 08/24/20 0919
[2020-08-24] MEDS ORDERED: CIPR-249 PO (10:11)
[2020-08-24] MEDS ORDERED: FLAG500T PO (10:11)
[2020-08-24 10:19] VITALS: BP 122/71
--- NOTE | 2020-08-27 12:30 | ED PDOC ---
Post-Departure Follow-Up ct abd/p faxed to cassie bonilla for fu Zulema Houston MD Aug 27, 2020 12:30
== END 2020-08-24 10:36 | disposition home or self-care (01) ==
LOC: M ED 04:39
DX: R10.84 Generalized abdominal pain (principal); K21.9 Gastro-esophageal reflux disease without esophagitis; G89.29 Other chronic pain; M54.9 Dorsalgia, unspecified; F17.200 Nicotine dependence, unspecified, uncomplicated
CPT/HCPCS: 74021; 74177; 80048; 80076; 81001; 82150; 82550; 82553; 83690; 85025; 93005; 94760; 96361; 96374; 96375; 99284; C9113; J1885; J2405; Q9967